=== PATIENT | male | born 1930 | race Caucasian/White ===

== ENCOUNTER 2017-04-15 16:41 | Inpatient (IN) | payer OTHER ==
[~2017-04-15] VITALS: Ht 172.7 cm; Wt 88.8 kg
[2017-04-15] VITALS (12 sets, daily range): BP systolic 94–143; BP diastolic 43–90; PULSE 55–66; TEMP 36.3–36.7; O2SAT 89–100; Ht 172.7 cm; Wt 88.8 kg
[2017-04-15] MEDS ORDERED: SODIUM CHLORIDE 0.9% 1000ML 1,000 ML IV STA (16:58)
[2017-04-15 17:56] LABS: INR 2.7 (0.9-1.1); PARTIAL THROMBOPLASTIN RATIO 1.4; PROTHROMBIN TIME (PATIENT) 30.5 SECONDS (9.0-12.0)
[2017-04-15 18:04] LABS: HEMATOCRIT 21.6 % (42-52); MEAN CELL VOLUME 80.3 fL (80-100); MEAN CORPUSCULAR HEMOGLOBIN 23.8 pg (25-34); MEAN CORPUSCULAR HGB CONC 29.6 g/dl (32-36); MEAN PLATELET VOLUME 8.6 fL (7.4-10.4); PLATELET COUNT 268 K/uL (130-400); RED BLOOD COUNT 2.69 M/uL (4.7-6.1); WHITE BLOOD COUNT 4.94 K/uL (4.8-10.8)
[2017-04-15 18:06] LABS: BUN/CREATININE RATIO 21.5 (10-20); CALCIUM 8.2 mg/dl (8.5-10.1); CREATININE 1.1 mg/dl (0.60-1.40); POTASSIUM 3.5 mmol/L (3.5-5.1)
[2017-04-15 18:09] LABS: BASO % 0.6 %; BASO ABS # 0.03 K/uL (0-0.2); COMPLETE YES; EOS % 2.4 %; HYPOCHROMIA PRESENT; LYMPH % 21.7 %; LYMPH ABS # 1.07 K/uL (1.2-3.4); MICROCYTOSIS PRESENT; MONO % 12.3 %
[2017-04-15 18:17] LABS: URINE APPEARANCE CLEAR (CLEAR); URINE BILIRUBIN NEG (NEG); URINE COLOR YELLOW; URINE NITRITE NEG (NEG); URINE SPECIFIC GRAVITY 1.015 (1.000-1.030); UROBILINOGEN NEG (NEG)
[2017-04-15 18:20] LABS: MANUAL MICROSCOPIC REQUIRED? NO; REVIEW REQ? NO
[2017-04-15] MEDS ORDERED: PRED20TA PO (18:39)
[2017-04-15] MEDS ORDERED: SIMV20TA2 PO (18:39)
[2017-04-15] MEDS ORDERED: PROAIR INH (18:39)
[2017-04-15] MEDS ORDERED: FRS/40 PO (18:39)
[2017-04-15] MEDS ORDERED: ADVIN50/60 INH (18:39)
[2017-04-15] MEDS ORDERED: ATRINS NEB (18:39)
[2017-04-15] MEDS ORDERED: WARF5TAB90 PO ×2 (18:39→18:59)
[2017-04-15] MEDS ORDERED: MULT-513 PO (18:39)
[2017-04-15] MEDS ORDERED: GUAISYP8 PO (18:39)
[2017-04-15] MEDS ORDERED: UMEC1AER INH (18:39)
[2017-04-15] MEDS ORDERED: MULT-190 PO (18:39)
[2017-04-15] MEDS ORDERED: ALBINS/ INH (18:39)
[2017-04-15] MEDS ORDERED: RANI300T2 PO (18:39)
[2017-04-15] MEDS ORDERED: LATA0.5S OP (18:39)
[2017-04-15] MEDS ORDERED: LISI-789 PO (18:39)
[2017-04-15] MEDS ORDERED: ACET-1487 PO (18:39)
[2017-04-15 19:29] LABS: TOTAL IRON BINDING CAPACITY 454 mcg/dl (250-450)
--- NOTE | 2017-04-15 19:53 | DIAGNOSTIC IMAGING REPORT ---
SINGLE VIEW CHEST CLINICAL HISTORY: Dyspnea. FINDINGS: An AP, portable, upright chest radiograph is obtained. No prior studies are available for comparison at the time of dictation. The examination is severely degraded by portable technique, motion artifact, apical and out of positioning, and patient rotation. The heart is enlarged and there is atherosclerotic calcification of the thoracic aorta. There is pulmonary vascular congestion. Nonspecific interstitial thickening is observed. There are small pleural effusions and bibasilar airspace opacities. No pneumothorax is seen. The skeletal structures are osteopenic. The bony thorax is grossly intact. Degenerative change is noted throughout the thoracic spine. IMPRESSION: 1. Cardiomegaly with evidence of congestive failure. 2. Small pleural effusions with bibasilar airspace opacities. This likely represents atelectasis. Clinical correlation will be required. Electronically signed by: Saravanan Montague M.D. 04/15/2017 7:51 PM Dictated Date/Time: 04/15/2017 7:50 PM
[2017-04-15] MEDS ORDERED: FUROSEMIDE INJ 40 MG in SYRINGE 0 ML IV STA (19:55)
[2017-04-15] MEDS ORDERED: TRAMADOL HCL 50 MG TAB PO PRN (20:00)
[2017-04-15] MEDS ORDERED: ONDANSETRON INJ 2 MG/ML 2 ML VIAL IV PRN (20:00)
[2017-04-15] MEDS ORDERED: ACETAMINOPHEN 325 MG TAB PO PRN (20:00)
[2017-04-15] MEDS ORDERED: NITROGLYCERIN 0.4 MG SL PER TAB CHARGE SL PRN (20:00)
[2017-04-15 20:03] LABS: MAGNESIUM 2.1 mg/dl (1.8-2.4); THYROID STIMULATING HORMONE 4.18 uIu/ml (0.300-4.500)
[2017-04-15] MEDS ORDERED: FUROSEMIDE 40 MG/4 ML VIAL ONE (20:16)
[2017-04-15] MEDS ORDERED: POTASSIUM CHLORIDE 10 MEQ TABCR PO STA (20:58)
--- NOTE | 2017-04-15 20:59 | EMERGENCY ROOM VISIT NOTE ---
History Report prepared by Judit: Srikanth Martins Under the Supervision of: Dr. Piter Trivedi M.D. First contact with patient: 16:51 Chief Complaint: ABNORMAL LABS Stated Complaint: BLOOD TRANSFUSION- PHYSICIAN REFERRED History of Present Illness The patient is an 86 year old male who presents to the Emergency Room with abnormal labs this morning. The patient states that he is weak, dizzy, has edema in his legs, and is short of breath. The patient reports that he had his outpatient labs from Dr. Zepeda's office. He states that he was referred to the hospital because his blood count was too low. The patient notes he currently takes Warfarin. His reports that he fell and obtained an infection in his leg where he was treated with three antibiotics. She notes that since then, he was showing weakness. Pt denies LOC, headache, fevers, chills, diaphoresis, visual changes, neck pain, chest pain, nausea, vomiting, abdominal pain, back pain, melena, hematochezia, urinary symptoms, numbness, lymphadenopathy, rash, or other complaints. The patient states that his PCP is Kiah Fitch. Source of History: patient Onset: prior to arrival Position: other (global) Quality: other (abnormal labs) Timing: constant Associated Symptoms: + SOB, + weakness Note: Associated symptoms: dizziness and edema in his legs, Review of Systems See HPI for pertinent positives and negatives. A total of ten systems were reviewed and were otherwise negative. Past Medical & Surgical Medical Problems: (1) Anticoagulant long-term use (2) Atrial fibrillation (3) Hypertension (4) Symptomatic anemia Family History No pertinent family history reported. Social History Smoking Status: Former Smoker Current/Historical Medications Scheduled Furosemide (Lasix), 40 MG PO DAILY Ipratropium [place] (Ipratropium [place]), 1 VIAL NEB QID Latanoprost (Xalatan 0.005% Oph Alice), 1 DROPS OP HS Lisinopril (Zestril), 2.5 MG PO DAILY Multivitamins/Minerals (Mvi With Minerals), 1 TAB PO DAILY Ocuvite Preservision (Ocuvite Preservision), 1 TAB PO BID Prednisone (Prednisone), 20 MG PO RESQUE KIT Ranitidine Hcl (Zantac), 300 MG PO HS Simvastatin (Zocor), 20 MG PO QPM Umeclidinium-Vilanterol (Anoro Ellipta 62.5-25 Mcg/INH), 1 PUFF INH DAILY Warfarin Sodium (Coumadin), 5 MG PO 4XWK Warfarin Sodium (Coumadin), 7.5 MG PO MWF Scheduled PRN Acetaminophen (Tylenol Arthritis Ext Rel), 650 MG PO Q8H PRN for Headache or Pain Albuterol Sulf (Proventil 0.083% 2.5MG/3ML), 2.5 MG INH Q4 PRN for SOB/Wheezing Guaifenesin-Codeine (Guaiatussin Ac), 5 ML PO QID PRN for Cough [Proair], 2 PUFF INH QID PRN for SOB/Wheezing Allergies Coded Allergies: No Known Allergies (Unverified , 04/15/17) Physical Exam Vital Signs Date Time Temp Pulse Resp B/P Pulse Ox O2 Delivery O2 Flow Rate FiO2 04/15/17 18:31 108/53 04/15/17 18:11 95 22 04/15/17 18:01 61 04/15/17 17:52 126/64 04/15/17 17:50 96 Nasal Cannula 2.0 04/15/17 16:48 36.8 85 16 109/47 98 Room Air Physical Exam GENERAL: Awake, alert, well-appearing, in no distress HENT: Normocephalic, atraumatic. Oropharynx unremarkable. EYES: Pale conjunctiva. Sclera non-icteric. NECK: Supple. No nuchal rigidity. FROM. No JVD. RESPIRATORY: Clear to auscultation. CARDIAC: Regular rate, normal rhythm. Extremities warm and well perfused. Pulses equal. ABDOMEN: Soft, non-distended. No tenderness to palpation. No rebound or guarding. No masses. RECTAL: Anmol negative, brown stool MUSCULOSKELETAL: Chest examination reveals no tenderness. The back is symmetrical on inspection without obvious abnormality. There is no CVA tenderness to palpation. No joint edema. LOWER EXTREMITIES: Calves are equal size bilaterally and non-tender. 2+ edema. No discoloration. NEURO: Normal sensorium. No sensory or motor deficits noted. SKIN: No rash or jaundice noted. Medical Decision & Procedures Laboratory Results 04/15/17 17:29 Red Blood Count 2.69, Mean Corpuscular Volume 80.3, Mean Corpuscular Hemoglobin 23.8, Mean Corpuscular Hemoglobin Concent 29.6, Mean Platelet Volume 8.6, Neutrophils (%) (Auto) 63.0, Lymphocytes (%) (Auto) 21.7, Monocytes (%) (Auto) 12.3, Eosinophils (%) (Auto) 2.4, Basophils (%) (Auto) 0.6, Neutrophils # (Auto ) 3.11, Lymphocytes # (Auto) 1.07, Monocytes # (Auto) 0.61, Eosinophils # (Auto ) 0.12, Basophils # (Auto) 0.03 04/15/17 17:29 Test 04/15/17 17:29 04/15/17 17:51 04/15/17 19:14 White Blood Count 4.94 K/uL (4.8-10.8) Red Blood Count 2.69 M/uL (4.7-6.1) Hemoglobin 6.4 g/dL (14.0-18.0) Hematocrit 21.6 % (42-52) Mean Corpuscular Volume 80.3 fL (80-100) Mean Corpuscular Hemoglobin 23.8 pg (25-34) Mean Corpuscular Hemoglobin Concent 29.6 g/dl (32-36) Platelet Count 268 K/uL (130-400) Mean Platelet Volume 8.6 fL (7.4-10.4) Neutrophils (%) (Auto) 63.0 % Lymphocytes (%) (Auto) 21.7 % Monocytes (%) (Auto) 12.3 % Eosinophils (%) (Auto) 2.4 % Basophils (%) (Auto) 0.6 % Neutrophils # (Auto) 3.11 K/uL (1.4-6.5) Lymphocytes # (Auto) 1.07 K/uL (1.2-3.4) Monocytes # (Auto) 0.61 K/uL (0.11-0.59) Eosinophils # (Auto) 0.12 K/uL (0-0.5) Basophils # (Auto) 0.03 K/uL (0-0.2) RDW Standard Deviation 55.4 fL (36.4-46.3) RDW Coefficient of Variation 18.6 % (11.5-14.5) Immature Granulocyte % (Auto) 0.0 % Immature Granulocyte # (Auto) 0.00 K/uL (0.00-0.02) Hypochromasia PRESENT Microcytosis PRESENT Macrocytosis PRESENT Absolute Reticulocyte Count 0.06 10^6/uL (0.02-0.10) Percent Reticulocyte Count 2.0 % (0.5-2.0) Prothrombin Time 30.5 SECONDS (9.0-12.0) Prothromb Time International Ratio 2.7 (0.9-1.1) Activated Partial Thromboplast Time 36.2 SECONDS (21.0-31.0) Partial Thromboplastin Ratio 1.4 Anion Gap 9.0 mmol/L (3-11) Est Creatinine Clear Calc Drug Dose 51.9 ml/min Estimated GFR () 69.6 Estimated GFR (Non- 60.0 BUN/Creatinine Ratio 21.5 (10-20) Calcium Level 8.2 mg/dl (8.5-10.1) Magnesium Level 2.1 mg/dl (1.8-2.4) Iron Level 14 mcg/dl (35-175) Total Iron Binding Capacity 454 mcg/dl (250-450) Total Bilirubin 0.6 mg/dl (0.2-1) Direct Bilirubin 0.2 mg/dl (0-0.2) Aspartate Amino Transf (AST/SGOT) 16 U/L (15-37) Alanine Aminotransferase (ALT/SGPT) 23 U/L (12-78) Alkaline Phosphatase 91 U/L (45-117) Troponin I 0.021 ng/ml (0-0.045) Total Protein 6.2 gm/dl (6.4-8.2) Albumin 3.2 gm/dl (3.4-5.0) Lipase 166 U/L (73-393) Thyroid Stimulating Hormone (TSH) 4.180 uIu/ml (0.300-4.500) Urine Color YELLOW Urine Appearance CLEAR (CLEAR) Urine pH 5.0 (4.5-7.5) Urine Specific Mcgreg[place] 1.015 (1.000-1.030) Urine Protein NEG (NEG) Urine Glucose (UA) NEG (NEG) Urine Ketones NEG (NEG) Urine Occult Blood NEG (NEG) Urine Nitrite NEG (NEG) Urine Bilirubin NEG (NEG) Urine Urobilinogen NEG (NEG) Urine Leukocyte Esterase NEG (NEG) Vitamin B12 Level 598 pg/mL (211-911) Folate > 24.00 ng/mL (>5.38) Laboratory results reviewed by me Medications Administered Medications (Trade) Dose Ordered Sig/Veronica Route Start Time Stop Time Status Last Admin Dose Admin Sodium Chloride (Nss 1000ml) 1,000 ml @ 125 mls/hr Q8H STAT IV 04/15/17 16:58 04/15/17 19:56 DC 04/15/17 18:05 125 MLS/HR ED Course 1650: The patient was evaluated in room C06. A complete history and physical exam was performed. 1657: Ordered Sodium Chloride 1000 ml @ 125 mls/hr IV 0: I reevaluated the patient and discussed his exam findings. I asked him to consent for a blood transfusion and he did. He verbalized understanding of the treatment plan. 2032: I discussed the patient's case with Dr. Luther Dupont. The patient is going to be further evaluated for treatment. Medical Decision Triage Nursing notes reviewed. The patient's presentation and history were concerning for possible severe anemia. Etiologies such as GI bleed, medication induced, bone marrow failure, iron deficiency as well as others were entertained. The patient was evaluated. Clinically he was doing well but was easily dyspneic with minimal movement. He was somewhat pale conjunctival examination. He had heme-negative findings on rectal examination. The patient had blood work obtained. He had a severe anemia with hemoglobin of 6.4. The patient was consented for packed red blood cell transfusion. This was ordered. The patient had a normal reticulocyte count. His INR was therapeutic at 2.7. The patient's iron level was low at 14. His LFTs were unremarkable. Consultation was made with internal medicine. The patient was briefed. The patient was evaluated in the Emergency Room by internal medicine for further management of his severe anemia. The chart was completed utilizing [employer] Speech voice recognition software. Grammatical errors, random word insertions, pronoun errors, and incomplete sentences are an occasional consequence of this system due to software limitations, ambient noise, and hardware issues. Any formal questions or concerns about the content, text, or information contained within the body of this dictation should be directly addressed to the physician for clarification. Consults Time Called: 2027 Consulting Physician: Kiah Rick Returned Call: 2032 I discussed the patient's case with Dr. Luther Dupont. The patient is going to be further evaluated for treatment. Impression Primary Impression: Severe anemia Additional Impressions: Anticoagulant long-term use Atrial fibrillation Scribe Attestation The scribe's documentation has been prepared under my direction and personally reviewed by me in its entirety. I confirm that the note above accurately reflects all work, treatment, procedures, and medical decision making performed by me. Departure Information Dispostion Being Evaluated By Hospitalist Referrals Cornelius Borrero M.D. (PCP) Patient Instructions My [facility] Problem Qualifiers
[2017-04-15] MEDS: SIMVASTATIN 20 MG TAB PO SCH (21:55)
[2017-04-15] MEDS: CEROVITE ADV FORMULA TAB PO SCH (21:55)
[2017-04-15] MEDS: LATANOPROST 0.005% OP SOLN 2.5 ML BTL OP SCH (21:56)
[2017-04-15] MEDS: RANITIDINE HCL 150 MG TAB PO SCH (21:56)
--- NOTE | 2017-04-15 21:59 | HISTORY & PHYSICAL EXAMINATION ---
DATE OF ADMISSION: 04/15/2017 PRIMARY CARE DOCTOR: Dr. Borrero CHIEF COMPLAINT: Abnormal blood work. HISTORY OF PRESENT ILLNESS: History was obtained from the patient's records. Medical history is significant for HTN, COPD, past tobacco abuse, paroxysmal atrial flutter on anticoagulation, chronic cor pulmonale as per records, pulmonary hypertension, nocturnal hypoxemia on home O2 at night. glaucoma. hx MRSA The last 2 months, patient noted shortness of breath, mostly on exertion; usual dry cough symptoms. No weight gain. Compliant with home medications. Has bilateral leg swelling. Seen at the [facility] office last week. Lasix dose was increased. No improvement. Patient was seen at kaiako kura tuarua's office today. Outpatient hemoglobin was noted to be 6. Patient was sent to Emergency Room. Patient denies abdominal pain, black or bloody stools, unusual weight loss. Bloodshot left eye from a few days ago. Patient also has a traumatic swelling on the left leg, slowly healing from a fall on November 2016. MEDICAL HISTORY: As above. A 2D echo from December 2014 showed LVH, EF of 56%, diastolic dysfunction, moderate aortic valve sclerosis, mild TR, moderate biatrial enlargement and pulmonary hypertension, abn PASP, mild enlargement aortic root and ascending aorta. No previous endoscopies in the past. SURGERIES: Cataract surgery. HOME MEDICATIONS: Include; Tylenol, Proventil, Lasix, guaifenesin, Xalatan, Zestril, multivitamins, Ocuvite, ProAir, Zantac, Zocor, Coumadin. ALLERGIES: No known drug allergies. FAMILY HISTORY: lung CA, heart disease. PERSONAL AND SOCIAL HISTORY: Past tobacco use. No chronic intake of alcoholic beverages. 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 All other ROS negative. PHYSICAL EXAMINATION: VITAL SIGNS: Blood pressure was noted to be 106/60, pulse rate 59, RR 18, temp 36.6 and sats 98 on room air. GENERAL: Noted to be slightly anxious, hard of hearing. No respiratory distress. SKIN: Pallor. HEENT: Pale palpebral conjunctivae. Dry mucosa. NECK: No JVD. Supple. CHEST: Decreased breath sounds. HEART: Bradycardic. ABDOMEN: Some distention, nontender. EXTREMITIES: Bilateral lower extremity edema with some induration left lower extremity. No exquisite tenderness. RECTAL: As per ERMD, Hemoccult negative. NEUROLOGIC: No gross focality except for mild hearing impairment. LABORATORIES: Hemoglobin 6.4 (last hemoglobin of of 14 from July 2000) hematocrit 21.6; WBC 4.9 and platelets 268. Sodium was noted to be 140, potassium 3.5, chloride 110, CO2 25, BUN 20, creatinine 1.1 and glucose was noted to be 88. INR is 2.7. Chest x-ray; congestion. EKG; as per my interpretation : rate 60, junctional rhythm. ASSESSMENT: 1. Shortness of breath multifactorial : acute congestive heart failure symptomatic anemia rule out occult blood loss (? L leg trauma) 2. hypertension, stable 3. hx aflutter on Coumadin. rate on the slower side INR therapeutic. 4. hx cor pulmonale/pulm HTN/ hx nocturnal hypoxemia on home O2 at night 5. chronic obstructive pulmonary disease pulmonary status at baseline 6. past tobacco abuse PLAN: PCU diuretic therapy strict IOs, daily weights, CHF education TTE, Cardio consult RE CHF. transfuse pRBC to maintain Hg greater than 7 ff anemia williamson Hold Coumadin for now. CT LLE RE swelling, hx trauma, ro hematoma DVT prophylaxis, SCDs while INR less than 2 while Coumadin on hold Full code. MTDD
[2017-04-15] MEDS ORDERED: POTASSIUM CHLORIDE 10 MEQ TABCR PO ONE (23:00)
--- NOTE | 2017-04-15 23:25 | DIAGNOSTIC IMAGING REPORT ---
CT SCAN OF THE LEFT LOWER EXTREMITY WITHOUT IV CONTRAST CLINICAL HISTORY: Left leg pain and swelling. COMPARISON STUDY: No priors. TECHNIQUE: CT scan of the left lower extremity is performed from the knee to the foot. Images reviewed in the axial, sagittal, and coronal planes. IV contrast was not administered for this examination. Note that interpretation is suboptimal without plain film correlate. CT DOSE: 265.20 mGy.cm FINDINGS: The skeletal structures are osteopenic. No fracture is seen. There is no bony erosion or periostitis. No destructive bony lesion is identified. The knee and ankle joints appear intact noting mild arthritic change. There is generalized atrophy of the imaged left lower extremity musculature. There is atherosclerotic calcification of the regional arteries. There is diffuse subcutaneous soft tissue edema fluid seen throughout the left lower extremity. No organized fluid collection is identified. The Achilles tendon is intact as imaged. IMPRESSION: 1. There is diffuse subcutaneous soft tissue edema identified throughout the left lower extremity. Clinical correlation will be required. 2. No organized fluid collection is seen. 3. The left tibia and fibula appear intact. Dictated: 04/15/2017 10:33 PM Transcribed: 04/15/2017 11:25 PM [email or web address]_Wilson Electronically signed by: Saravanan Montague M.D. 04/15/2017 11:27 PM Dictated Date/Time: 04/15/2017 10:33 PM
[2017-04-16] VITALS (10 sets, daily range): BP systolic 100–120; BP diastolic 57–74; PULSE 52–76; TEMP 36.4–36.9; O2SAT 91–99
[2017-04-16 05:38] LABS: BASO % 0.4 %; BASO ABS # 0.02 K/uL (0-0.2); EOS % 3.7 %; HEMATOCRIT 26.4 % (42-52); IG% 0.4 %; LYMPH % 24.5 %; LYMPH ABS # 1.32 K/uL (1.2-3.4); MEAN CELL VOLUME 80.7 fL (80-100); MEAN CORPUSCULAR HEMOGLOBIN 24.5 pg (25-34); MEAN CORPUSCULAR HGB CONC 30.3 g/dl (32-36); MONO % 14.3 %; NEUT % 56.7 %; PLATELET COUNT 262 K/uL (130-400); RED BLOOD COUNT 3.27 M/uL (4.7-6.1); WHITE BLOOD COUNT 5.39 K/uL (4.8-10.8)
[2017-04-16 05:49] LABS: INR 2.4 (0.9-1.1); PROTHROMBIN TIME (PATIENT) 26.6 SECONDS (9.0-12.0)
[2017-04-16 06:09] LABS: BUN/CREATININE RATIO 24.3 (10-20); POTASSIUM 3.9 mmol/L (3.5-5.1)
[2017-04-16 06:11] LABS: COMPLETE YES
[2017-04-16] MEDS: FERROUS SULFATE 325 MG TAB PO SCH ×2 (08:01→17:20)
[2017-04-16] MEDS: CEROVITE ADV FORMULA TAB PO SCH ×2 (08:02→20:46)
[2017-04-16] MEDS: FUROSEMIDE INJ 40 MG in SYRINGE 0 ML IV SCH ×2 (08:05→17:20)
[2017-04-16] MEDS ORDERED: LISINOPRIL 2.5 MG TAB PO SCH (09:00)
[2017-04-16 12:25] LABS: HEMATOCRIT 27.2 % (42-52)
--- NOTE | 2017-04-16 13:09 | ECHOCARDIOGRAM REPORT ---
*NOTICE TO RECEIVING [employer] This information is strictly Confidential and protected under [place] law. [place] law prohibits you from making any further disclosure of this information unless further disclosure is expressly permitted by the written consent of the person to whom it pertains or is authorized by law. A general authorization for the release of medical or other information is not sufficient for this purpose. Hospital accepts no responsibility if the information is made available to any other person, INCLUDING THE PATIENT. Interpretation Summary * Name: TEJ DESOUZA Study Date: 04/16/2017 09:05 AM BP: 109/68 mmHg * Patient Location: C.2T\S\S234\S\1 HR: 54 * : 1930 (M/d/yyyy) Gender: Male Height: 68 in * Age: 86 yrs Ethnicity: CA Weight: 201 lb * Ordering Physician: Felix Caceres * Referring Physician: James Zepeda D.O. * Performed By: Olga Desouza * * Reason For Study: CHF * BSA: 2.0 m2 * -- Conclusions -- * The left ventricle is normal in size. * There is mild concentric left ventricular hypertrophy. * Left ventricular systolic function is normal. * No regional wall motion abnormalities noted. * Ejection Fraction = 55-60%. * Aortic valve sclerosis moderate, without significant aortic valvular stenosis. * There is moderate mitral regurgitation. * There is moderate tricuspid regurgitation. * The right atrium is moderately dilated. * Right ventricular systolic pressure is elevated at 40-50mmHg. Procedure Details * A complete two-dimensional transthoracic echocardiogram was performed (2D, M-mode, Doppler and color flow Doppler). Left Ventricle * The left ventricle is normal in size. * There is mild concentric left ventricular hypertrophy. * Ejection Fraction = 55-60%. * Left ventricular systolic function is normal. * No regional wall motion abnormalities noted. Right Ventricle * The right ventricle is borderline dilated. Atria * The left atrial size is normal. * The right atrium is moderately dilated. * No ASD detected; PFO is not assessed. Mitral Valve * The mitral valve anatomy is normal. * There is no mitral valve stenosis. * There is moderate mitral regurgitation. Tricuspid Valve * The tricuspid valve anatomy is normal. * There is no tricuspid stenosis. * There is moderate tricuspid regurgitation. * Right ventricular systolic pressure is elevated at 40-50mmHg. Aortic Valve * The aortic valve is trileaflet. * Aortic valve sclerosis moderate, without significant aortic valvular stenosis. * No aortic regurgitation is present. Pulmonic Valve * The pulmonic valve is not well visualized. Great Vessels * The aortic root is normal size. Pericardium/Pleural * There is no pericardial effusion. Great Vessels * Normal inferior vena cava diameter and respiratory variation suggests normal central venous pressure. MMode 2D Measurements and Calculations IVSd 1.4 cm IVSs 1.7 cm LVIDd 5.2 cm LVIDs 3.6 cm LVPWd 1.0 cm LVPWs 1.7 cm IVS/LVPW 1.3 FS 31.1 % EDV(Teich) 129.3 ml ESV(Teich) 53.7 ml EF(Teich) 58.5 % EDV(cubed) 140.3 ml ESV(cubed) 45.8 ml EF(cubed) 67.3 % % IVS thick 25.5 % % LVPW thick 63.0 % LV mass(C)d 252.5 grams LV mass(C)dI 123.3 grams/m\S\2 LV mass(C)s 250.1 grams LV mass(C)sI 122.1 grams/m\S\2 SV(Teich) 75.6 ml SI(Teich) 36.9 ml/m\S\2 SV(cubed) 94.4 ml SI(cubed) 46.1 ml/m\S\2 ACS 1.2 cm LA dimension 4.7 cm asc Aorta Diam 4.3 cm LVOT diam 1.7 cm LVOT area 2.4 cm\S\2 LVAd ap4 38.2 cm\S\2 LVLd ap4 9.4 cm EDV(MOD-sp4) 124.4 ml EDV(sp4-el) 132.0 ml LVAs ap4 23.4 cm\S\2 LVLs ap4 8.1 cm ESV(MOD-sp4) 54.4 ml ESV(sp4-el) 57.3 ml EF(MOD-sp4) 56.3 % EF(sp4-el) 56.6 % LVAd ap2 39.9 cm\S\2 LVLd ap2 9.8 cm EDV(MOD-sp2) 136.6 ml EDV(sp2-el) 138.4 ml LVAs ap2 23.4 cm\S\2 LVLs ap2 7.8 cm ESV(MOD-sp2) 58.7 ml ESV(sp2-el) 59.3 ml EF(MOD-sp2) 57.0 % EF(sp2-el) 57.2 % LVLd %diff 4.0 % EDV(MOD-bp) 130.9 ml LVLs %diff -3.94 % ESV(MOD-bp) 57.7 ml EF(MOD-bp) 55.9 % SV(MOD-sp4) 70.1 ml SI(MOD-sp4) 34.2 ml/m\S\2 SV(MOD-sp2) 78.0 ml SI(MOD-sp2) 38.1 ml/m\S\2 SV(MOD-bp) 73.2 ml SI(MOD-bp) 35.7 ml/m\S\2 SV(sp4-el) 74.7 ml SI(sp4-el) 36.5 ml/m\S\2 SV(sp2-el) 79.1 ml SI(sp2-el) 38.6 ml/m\S\2 Doppler Measurements and Calculations MV E max trice 155.3 cm/sec MV A max trice 51.8 cm/sec MV E/A 3.0 MV dec time 0.20 sec Ao V2 max 206.0 cm/sec Ao max PG 17.0 mmHg Ao max PG (full) 15.1 mmHg SIA(V,A) 0.79 cm\S\2 SAI(V,D) 0.79 cm\S\2 AI max trice 326.0 cm/sec AI max PG 42.5 mmHg AI dec slope 171.0 cm/sec\S\2 AI P1/2t 558.3 msec LV V1 max PG 1.8 mmHg LV V1 max 67.9 cm/sec MR max trice 472.0 cm/sec MR max PG 89.1 mmHg PA V2 max 78.2 cm/sec PA max PG 2.4 mmHg PI end-d trice 90.6 cm/sec TR max trice 313.7 cm/sec
--- NOTE | 2017-04-16 13:37 | CARDIOLOGY CONSULTATION ---
DATE OF CONSULTATION: 04/16/2017 DATE OF CONSULTATION: 04/16/2017. REFERRING: Dr. Felix Caceres. PRIMARY CARE PHYSICIAN: Justus Fitch. INDICATIONS: Chronic Afib flutter, profound anemia. HISTORY OF PRESENT ILLNESS: The patient is an 86-year-old male followed for a history of chronic atrial fibrillation flutter on anticoagulation with intrinsic conduction system disease, history of nocturnal hypoxia chronic obstructive lung disease and pulmonary hypertension by history. The patient was seen yesterday in the outpatient cardiology clinic noting worsening symptoms of fatigue, dyspnea and lower extremity edema. Did note leg contusion earlier this past winter which took a long time to heal. He was sent for stat laboratory studies which returned marked anemia, hemoglobin of 6.4. He was subsequently referred for hospitalization. The patient was seen this morning after admission and transfusion, hemoglobin not greater than 8. Family and patient both feel he looks and feels substantially better, has had spontaneous diuresis. Denies any chest pains, denies tachypalpitations. Notes no syncope or near syncope. Has had difficulties with increasing lower extremity edema which resulted in increased diuretic dosing as an outpatient. Notes no overt signs or symptoms of melena or hematochezia. Notes no dysuria or hematuria. Notes no change in appetite. Notes no headache or visual changes. Did have difficulties with poor healing of contusion to left holland and tibia area treated with antibiotic therapies in November. Notes no other acute complaints. Notes no headache or visual changes. Notes no rash or worsening arthritic complaints. Is modestly active about home but has been dyspneic with minimal exertion over the past several weeks. ALLERGIES: None. MEDICATIONS: At home were Cheratussin p.r.n. cough, ranitidine 300 mg p.o. every day, Atrovent nebulizer, Ellipta nebulizer, prednisone taper rescue pack not used recently, simvastatin 20 mg p.o. daily, lisinopril 2.5 mg p.o. daily, furosemide 20 mg 2 tablets per day, warfarin 7.5 mg Thursday, Thursday, Thursday and 5 mg all other days, oxygen 2 liters nasal cannula. PAST SURGICAL HISTORY: Notable for cataract extractions. FAMILY HISTORY: Noncontributory. SOCIAL HISTORY: The patient is retired from [employer]. He is a nonsmoker x17 years though with [id number] history prior. Uses no significant alcoholic beverages. Is modestly active about his home. PHYSICAL EXAMINATION: VITAL SIGNS: Heart rates 50-60. Blood pressure is 104/57. HEAD, EYES, EARS, NOSE, AND THROAT EXAMINATION: Normocephalic, atraumatic. NECK: Thick. There is no distinct jugular venous distention. LUNGS: Reveal diminished breath sounds with few scattered crackles at the bases. Apices are clear. CARDIOVASCULAR EXAMINATION: Irregularly irregular. Grade 1-2/6 systolic murmur. There is no diastolic murmur. ABDOMEN: Soft. There is no palpable hepatosplenomegaly. EXTREMITIES: Without cyanosis or clubbing. There is 1-2+ lower extremity edema, left greater than right, healing contusion left holland without drainage. NEUROLOGIC: The patient is answering questions appropriately. LABORATORY DATA: White cell count on presentation was 4.9, is 5.3 this morning, hemoglobin on presentation as noted was 6.4, hemoglobin this morning is 8.0. Sodium is 144, potassium is 3.5, chloride 110, bicarb 25, BUN 24, creatinine is 1.1. The TSH is 4.1. Iron level is diminished at 14. There is microcytic indices on initial CBC. Chest x-ray revealed small bilateral pleural effusions. EKG reveals Afib flutter with slow ventricular response rate. Rate 59, occasional ventricular ectopic beats. IMPRESSION: An 86-year-old male admitted with signs and symptoms of fluid retention and volume overload in association with profound anemia. Carries a history of chronic anticoagulation for Afib flutter. No overt source of bleeding. Microcytic indices and iron deficiency noted. The patient has intrinsic conduction system disease by history. The patient on no AV jamie blocking agents with bradycardia at rest. PLAN: Continue transfusion and GI evaluations for bleeding source. Echocardiogram will be reviewed as available. The patient to be maintained on telemetry during hospitalization giving her relatively low heart rates. Would hold furosemide after evening dose this evening as edema appears to be in response anemia rather than acute volume overload.
[2017-04-16 19:06] LABS: HEMATOCRIT 27.2 % (42-52)
[2017-04-16 19:25] LABS: BUN/CREATININE RATIO 15.9 (10-20); CALCIUM 8.4 mg/dl (8.5-10.1); CREATININE 1.5 mg/dl (0.60-1.40); MAGNESIUM 2.3 mg/dl (1.8-2.4); PHOSPHORUS 2.8 mg/dl (2.5-4.9); POTASSIUM 3.9 mmol/L (3.5-5.1)
[2017-04-16] MEDS ORDERED: SODIUM CHLORIDE 0.9% 1000ML 1,000 ML IV SCH (20:00)
[2017-04-16] MEDS: SIMVASTATIN 20 MG TAB PO SCH (20:46)
[2017-04-16] MEDS: LATANOPROST 0.005% OP SOLN 2.5 ML BTL OP SCH (20:46)
[2017-04-16] MEDS: RANITIDINE HCL 150 MG TAB PO SCH (20:46)
--- NOTE | 2017-04-16 22:35 | Progress Note ---
Internal Med Progress Note Date of Service: April 16, 2017. Provider Documentation: SUBJECTIVE: developed episodes of non sustained vtach pt remains asymptomatic denies of any dizzy spell ,no complain of palpitation ,no chest discomfort sitting on end of bed comfortably ' eager to go home visiting OBJECTIVE: Vital Signs-as noted below Exam: General-no sign of distress Eyes-sclera non icteric Lungs-CTA Heart-irregular Abdomen-soft, non tender Extremities-no rash or deformity Neuro-AAO X3 ,no focal deficit Lab data as noted below. ASSESSMENT & PLAN: SYMPTOMATIC ANEMIA : presented with SOB , GORDON Hb ~6 , on chronic anticoagulation with Coumadin borderline microcytic anemia Fe study shows evidence of Fe deficiency ' pt does not recall of having Colonoscopy or EGD done in past s/p 2 units PRBC tx HB improved 6.4 -> 8.4 appropriate correction added Fe supplement GI eval requested ordered for NPO Past midnight NON SUSTAINED VTACH pt denies of any symptom stat lab shows TOM -mild elevation of Cr 1.5 can not order Lopressor for baseline bradycardia ~54 may need amiodarone -will defer to Cardiology cont tele monitor daily EKG HX OF CHRONIC AFIB /FLUTTER not on Beta brent or AV jamie blocking agent due to chronic bradycardia Coumadin on hold due to anemia -possible chronic blood loss ACUTE CHF WITH DIASTOLIC DYSFUNCTION : was given IV lasix initially on hold as pt appears to compensated no evidence of vol overload ECHO : There is mild concentric left ventricular hypertrophy. Left ventricular systolic function is normal. No regional wall motion abnormalities noted. Ejection Fraction = 55-60%. Aortic valve sclerosis moderate, without significant aortic valvular stenosis. cardiology following TOM ON CKD STAGE 3 Cr elevated 1-. 1.5 due to Lasix diuresis hold lasix gentle IV hydration repeat PRP in AM DVT PROPHYLAXIS INR 2 DISPOSITION to home when medically stable Vital Signs: Date Time Temp Pulse Resp B/P Pulse Ox O2 Delivery O2 Flow Rate FiO2 04/16/17 20:00 Room Air 04/16/17 19:19 36.9 56 18 100/57 92 Room Air 04/16/17 16:00 Room Air 04/16/17 15:31 36.5 20 113/67 99 Room Air 04/16/17 12:00 97 Room Air 04/16/17 08:00 97 Room Air 04/16/17 07:52 36.9 76 18 104/57 95 04/16/17 04:09 36.7 54 18 109/68 98 Nasal Cannula 04/16/17 04:00 Room Air 2.0 04/16/17 01:55 52 18 116/74 96 04/16/17 00:05 36.4 55 18 120/73 97 04/16/17 00:01 98 Room Air 2.0 04/15/17 23:35 36.6 55 18 94/56 89 2.0 04/15/17 23:15 36.6 55 18 95/57 95 2.0 04/15/17 23:00 36.3 56 18 102/52 96 2.0 04/15/17 22:48 36.3 56 20 101/43 98 Lab Results: Results Past 24 Hours Test 04/16/17 05:16 04/16/17 12:09 04/16/17 18:58 Range/Units White Blood Count 5.39 4.8-10.8 K/uL Red Blood Count 3.27 4.7-6.1 M/uL Hemoglobin 8.0 8.5 8.4 14.0-18.0 g/dL Hematocrit 26.4 27.2 27.2 42-52 % Mean Corpuscular Volume 80.7 80-100 fL Mean Corpuscular Hemoglobin 24.5 25-34 pg Mean Corpuscular Hemoglobin Concent 30.3 32-36 g/dl Platelet Count 262 130-400 K/uL Mean Platelet Volume 9.0 7.4-10.4 fL Neutrophils (%) (Auto) 56.7 % Lymphocytes (%) (Auto) 24.5 % Monocytes (%) (Auto) 14.3 % Eosinophils (%) (Auto) 3.7 % Basophils (%) (Auto) 0.4 % Neutrophils # (Auto) 3.06 1.4-6.5 K/uL Lymphocytes # (Auto) 1.32 1.2-3.4 K/uL Monocytes # (Auto) 0.77 0.11-0.59 K/uL Eosinophils # (Auto) 0.20 0-0.5 K/uL Basophils # (Auto) 0.02 0-0.2 K/uL RDW Standard Deviation 52.5 36.4-46.3 fL RDW Coefficient of Variation 17.7 11.5-14.5 % Immature Granulocyte % (Auto) 0.4 % Immature Granulocyte # (Auto) 0.02 0.00-0.02 K/uL Red Blood Cell Morphology Unremarkable Prothrombin Time 26.6 9.0-12.0 SECONDS Prothromb Time International Ratio 2.4 0.9-1.1 Sodium Level 145 143 136-145 mmol/L Potassium Level 3.9 3.9 3.5-5.1 mmol/L Chloride Level 111 105 98-107 mmol/L Carbon Dioxide Level 26 31 21-32 mmol/L Anion Gap 8.0 7.0 3-11 mmol/L Blood Urea Nitrogen 24 24 7-18 mg/dl Creatinine 1.00 1.50 0.60-1.40 mg/dl Est Creatinine Clear Calc Drug Dose 57.0 37.7 ml/min Estimated GFR () 78.1 47.8 Estimated GFR (Non- 67.4 41.3 BUN/Creatinine Ratio 24.3 15.9 10-20 Random Glucose 84 119 70-99 mg/dl Calcium Level 8.0 8.4 8.5-10.1 mg/dl Phosphorus Level 2.8 2.5-4.9 mg/dl Magnesium Level 2.3 1.8-2.4 mg/dl
[2017-04-16] MEDS ORDERED: POTASSIUM CHLORIDE 10 MEQ TABCR PO STA (22:36)
[2017-04-17 03:51] VITALS: BP 122/71; PULSE 80; TEMP 36.8; O2SAT 94
[2017-04-17 06:20] LABS: BASO % 0.9 %; BASO ABS # 0.05 K/uL (0-0.2); EOS % 3.1 %; HEMATOCRIT 27.4 % (42-52); LYMPH % 20.1 %; LYMPH ABS # 1.15 K/uL (1.2-3.4); MEAN CELL VOLUME 81.3 fL (80-100); MEAN CORPUSCULAR HEMOGLOBIN 25.5 pg (25-34); MEAN CORPUSCULAR HGB CONC 31.4 g/dl (32-36); MEAN PLATELET VOLUME 9.5 fL (7.4-10.4); MONO % 13.5 %; NEUT % 62.4 %; PLATELET COUNT 282 K/uL (130-400); RED BLOOD COUNT 3.37 M/uL (4.7-6.1); WHITE BLOOD COUNT 5.72 K/uL (4.8-10.8)
[2017-04-17 06:28] LABS: INR 1.9 (0.9-1.1); PROTHROMBIN TIME (PATIENT) 20.6 SECONDS (9.0-12.0)
[2017-04-17 06:49] LABS: BUN/CREATININE RATIO 20.9 (10-20); CALCIUM 8.3 mg/dl (8.5-10.1); CREATININE 1.1 mg/dl (0.60-1.40); MAGNESIUM 2.3 mg/dl (1.8-2.4); POTASSIUM 3.7 mmol/L (3.5-5.1)
[2017-04-17 06:51] LABS: COMPLETE YES; GIANT PLATELETS 1+; MICROCYTOSIS PRESENT
[2017-04-17] MEDS: FERROUS SULFATE 325 MG TAB PO SCH ×2 (07:30→16:15)
--- NOTE | 2017-04-17 07:51 | Gastrointestinal Consultation ---
Gastrointestinal Consultation Date of Consultation: April 17, 2017 Attending Physician: Lonnie Consulting Physician: Charan Reason for Consultation: anemia History of Present Illness Patient is a 86 year old male w/ PMH significant for HTN, COPD, paroxysmal atrial flutter on anticoagulation, chronic cor pulmonale, pulmonary HTN, nocturnal hypoxemia on home O2 at night and glaucoma who presents through the ED for abnormal labs from his collar separator. As an outpatient he has experiencing weakness, dizziness, and GORDON. GI is consulted for anemia, appears to be microcytic with iron deficiency. He tells me he has never had an EGD or colonoscopy. He has not been aware of any gross GI bleeding. He does not have any symptoms of acid reflux. He does take coumadin as an outpatient. Pt is a poor historian - he is unsure if he takes anything for acid reflux as an outpatient. Of note there was a run of v-tach overnight. Patient's case was briefly discuss with cardiology who is also following and they are ok to proceed with any procedures. He is on contact isolation for MRSA infection - he tells me there is no acute infection. Past Medical/Surgical History Medical Problems: (1) Anticoagulant long-term use Status: Chronic (2) Atrial fibrillation Status: Chronic (3) Severe anemia Status: Acute Past Medical History: HTN, COPD, paroxysmal atrial flutter on anticoagulation, chronic cor pulmonale, pulmonary HTN, nocturnal hypoxemia Past Surgical History: Cataract surgery Social History Smoking Status: Former Smoker Allergies Coded Allergies: No Known Allergies (Unverified , 04/15/17) Current Medications Home Meds and Scripts Medications Dose Route/Sig Max Daily Dose Days Date Category Dose Instructions Coumadin (Warfarin Sodium) 5 Mg Tab 7.5 Mg PO MWF 04/15/17 Reported Mvi With Minerals (Multivitamins/Minerals) Tab 1 Tab PO DAILY 04/15/17 Reported Tylenol Arthritis Ext Rel (Acetaminophen) 650 Mg Tab 650 Mg PO Q8H PRN 04/15/17 Reported Ocuvite Preservision (Multivitamins/Minerals) 1 Tab Tab 1 Tab PO BID 04/15/17 Reported Coumadin (Warfarin Sodium) 5 Mg Tab 5 Mg PO 4XWK 04/15/17 Reported take sun, tues, thur, sat [Proair] 2 Puff INH QID PRN 04/15/17 Reported Lasix (Furosemide) 40 Mg Tab 40 Mg PO DAILY 04/15/17 Reported Zocor (Simvastatin) 20 Mg Tab 20 Mg PO QPM 04/15/17 Reported Prednisone 20 Mg Tab 20 Mg PO RESQUE KIT 04/15/17 Reported Xalatan 0.005% Oph Alice (Latanoprost) 0.005 % Alice 1 Drops OP HS 04/15/17 Reported Proventil 0.083% 2.5MG/3ML (Albuterol Sulf) 2.5 Mg/3 Ml Nebu 2.5 Mg INH Q4 PRN 04/15/17 Reported Anoro Ellipta 62.5-25 Mcg/INH (Umeclidinium-Vilanterol) 1 Aer Aer 1 Puff INH DAILY 04/15/17 Reported Ipratropium [place] 0.5 Mg/2.5 Ml Nebu 1 Vial NEB QID 30 04/15/17 Reported Zantac (Ranitidine HCl) 300 Mg Tab 300 Mg PO HS 04/15/17 Reported Guaiatussin Ac (Guaifenesin-Codeine) 1 Syp Syp 5 Ml PO QID PRN 04/15/17 Reported Zestril (Lisinopril) 2.5 Mg Tab 2.5 Mg PO DAILY 04/15/17 Reported Review of Systems Constitutional: No chills, No fever Respiratory: No cough, No shortness of breath Cardiac: No chest pain, No edema Abdomen: No GI bleeding, No constipation, No diarrhea, No nausea, No pain, No vomiting Physical Exam Date Time Temp Pulse Resp B/P Pulse Ox O2 Delivery O2 Flow Rate FiO2 04/17/17 04:00 Nasal Cannula 2.0 04/17/17 03:51 36.8 80 20 122/71 94 Nasal Cannula 2.0 04/17/17 00:00 Room Air 04/16/17 23:04 36.6 57 20 109/64 91 Room Air 04/16/17 20:00 Room Air 04/16/17 19:19 36.9 56 18 100/57 92 Room Air 04/16/17 16:00 Room Air 04/16/17 15:31 36.5 20 113/67 99 Room Air 04/16/17 12:00 97 Room Air 04/16/17 08:00 97 Room Air 04/16/17 07:52 36.9 76 18 104/57 95 General Appearance: no apparent distress (sitting OOB in chair) Eyes: PERRL ENT: + pertinent finding (hard of hearing) Neck: supple Respiratory/Chest: lungs clear, no accessory muscle use, + pertinent finding ( diminished at bases) Cardiovascular: no gallop, no JVD, + systolic murmur, + irregularly irregular Abdomen: normal bowel sounds, non tender, soft, no organomegaly, no pulsatile mass Neurologic/Psych: alert, normal mood/affect, oriented x 3 Skin: normal color Laboratory Results Last 24 Hours Test 04/16/17 12:09 04/16/17 18:58 04/17/17 05:38 Hemoglobin 8.5 g/dL 8.4 g/dL 8.6 g/dL Hematocrit 27.2 % 27.2 % 27.4 % Sodium Level 143 mmol/L 143 mmol/L Potassium Level 3.9 mmol/L 3.7 mmol/L Chloride Level 105 mmol/L 109 mmol/L Carbon Dioxide Level 31 mmol/L 28 mmol/L Anion Gap 7.0 mmol/L 6.0 mmol/L Blood Urea Nitrogen 24 mg/dl 23 mg/dl Creatinine 1.50 mg/dl 1.10 mg/dl Est Creatinine Clear Calc Drug Dose 37.7 ml/min 51.1 ml/min Estimated GFR () 47.8 69.6 Estimated GFR (Non- 41.3 60.0 BUN/Creatinine Ratio 15.9 20.9 Random Glucose 119 mg/dl 86 mg/dl Calcium Level 8.4 mg/dl 8.3 mg/dl Phosphorus Level 2.8 mg/dl Magnesium Level 2.3 mg/dl 2.3 mg/dl White Blood Count 5.72 K/uL Red Blood Count 3.37 M/uL Mean Corpuscular Volume 81.3 fL Mean Corpuscular Hemoglobin 25.5 pg Mean Corpuscular Hemoglobin Concent 31.4 g/dl Platelet Count 282 K/uL Mean Platelet Volume 9.5 fL Neutrophils (%) (Auto) 62.4 % Lymphocytes (%) (Auto) 20.1 % Monocytes (%) (Auto) 13.5 % Eosinophils (%) (Auto) 3.1 % Basophils (%) (Auto) 0.9 % Neutrophils # (Auto) 3.57 K/uL Lymphocytes # (Auto) 1.15 K/uL Monocytes # (Auto) 0.77 K/uL Eosinophils # (Auto) 0.18 K/uL Basophils # (Auto) 0.05 K/uL RDW Standard Deviation 54.7 fL RDW Coefficient of Variation 18.4 % Immature Granulocyte % (Auto) 0.0 % Immature Granulocyte # (Auto) 0.00 K/uL Nucleated RBC Absolute Count (auto) 0.02 K/uL Nucleated Red Blood Cells % 0.4 % Giant Platelets 1+ Microcytosis PRESENT Prothrombin Time 20.6 SECONDS Prothromb Time International Ratio 1.9 Impression Patient is a 86 year old male with suspected LILIANE with abnormal HGB of 6.4 --> 2 units PRBC --> 8.6. He denies any s/s of gross GI bleeding. He has never had endoscopic evaluation before. Differentials including malignancy as a source of chronic GI blood loss were explained to the pt who verbalized understanding. Plan Hold Coumadin NPO EGD with Dr. Farrar today He will need a colonoscopy - if admitted please plan for Thursday with Dr. Feldman NPO after midnight 20 mg dulcolax at 1700 4L colytely at 1700 Trend H&H Transfuse as needed Further recommendations pending EGD GI to follow. Please call with any questions. ATTESTATION: I have performed a history and physical examination of this patient and reviewed the electronic record. Specifically, on physical examination EGD did not show a source of blood loss. I have discussed the case with CHON Perla. The above note reflects my findings, conclusions, and recommendations. Sonny Farrar MD
[2017-04-17 08:44] VITALS: BP 132/86; PULSE 62; TEMP 36.9; O2SAT 96
[2017-04-17] MEDS ORDERED: METOPROLOL SUCC 25MG EXT REL TAB PO STA (09:11)
--- NOTE | 2017-04-17 10:00 | CARDIOLOGY PROGRESS NOTE ---
DATE: 04/17/2017 DATE: 04/17/2017. The patient seen and examined. Chart, medications, telemetry reviewed. SUBJECTIVE: The patient feels substantially improved this morning, sitting out of bed in chair. Notes no dizziness, lightheadedness. Notes no syncope or near syncope. Notes no tachypalpitations. Notes no orthopnea or worsening peripheral edema with edema improved. Anticipates upper endoscopy later today. OBJECTIVE: VITAL SIGNS: Heart rate is 60-80. Blood pressure is 122/71. Telemetry revealed transient runs of wide complex tachycardia which appear to be atrial in origin with aberrancy. NECK: Thin. There is no jugular venous distention. LUNGS: Reveal minimal crackles at the right base, but are predominantly clear with improvement from prior examination. CARDIOVASCULAR EXAMINATION: Irregular, irregular. There is no S3 gallop. ABDOMEN: Soft. EXTREMITIES: Without cyanosis or clubbing. There is trivial pedal edema left slightly greater than right. LABORATORY DATA: Sodium is 143, potassium is 3.7, chloride is 109, bicarbonate is 28, BUN is 23, creatinine is 1.1. INR is 1.9, hemoglobin is 8.6, magnesium level is 2.3. IMPRESSION: An 86-year-old male admitted with profound anemia and associated edema now clinically improved after 2 unit transfusion. Indices are notable for microcytic findings and iron deficiency. Anticipated upper endoscopy. He does have chronic atrial fibrillation flutter with generally slow ventricular response rate reflecting intrinsic conduction disease. Since admission and transfusion heart rates have improved though has had transient runs of fast heart rhythms which appear to be atrial fibrillation with aberrancy, ventricular arrhythmia not completely excluded. PLAN: Begin low dose beta brent with some notable history of conduction system disease intrinsic. The patient to be maintained on telemetry with cautious followup given tendency towards bradyarrhythmias, 12.5 mg Toprol will be administered this morning. No contraindications to proceeding with endoscopy later today. Supplement potassium to greater than 4 once able to resume oral intake.
[2017-04-17] MEDS: ALBUT/IPRATROP 3MG/0.5MG NEB 3 ML VIAL INH PRN (12:39)
[2017-04-17 12:40] VITALS: PULSE 57; O2SAT 92
[2017-04-17] MEDS ORDERED: KETAMINE HCL INJ 50 MG/ML 10 ML VIAL ONE (12:52)
[2017-04-17] MEDS ORDERED: MIDAZOLAM HCL 1 MG/ML 2ML VIAL ONE (12:52)
--- NOTE | 2017-04-17 13:39 | GI REPORT ---
Procedure Date: 04/17/2017 1:10 PM Procedure: Upper GI endoscopy Indications: Iron deficiency anemia Medicines: Monitored Anesthesia Care Complications: No immediate complications. Estimated blood loss: None. Estimated Blood Loss: Estimated blood loss: none. Procedure: Pre-Anesthesia Assessment: - Prior to the procedure, a History and Physical was performed, and patient medications, allergies and sensitivities were reviewed. The patient's tolerance of previous anesthesia was reviewed. - ASA Grade Assessment: IV - A patient with severe systemic disease that is a constant threat to life. After obtaining informed consent, the endoscope was passed under direct vision. Throughout the procedure, the patient's blood pressure, pulse, and oxygen saturations were monitored continuously. The Scope was introduced through the mouth, and advanced to the third part of the duodenum. Small bowel enteroscopy was deemed necessary. The upper GI endoscopy was accomplished with ease. The patient tolerated the procedure well. Findings: The examined esophagus was normal. The Z-line was irregular and was found 40 cm from the incisors. A small hiatus hernia was present. The entire examined stomach was normal. Biopsies were taken with a cold forceps for Helicobacter pylori testing. The examined duodenum was normal. Biopsies for histology were taken with a cold forceps for evaluation of celiac disease. Verification of patient identification for the specimens was done by the physician and nurse using the patient's name, date and medical record number. Impression: - Normal esophagus. - Z-line irregular, 40 cm from the incisors. - Small hiatus hernia. - Normal stomach. Biopsied. - Normal examined duodenum. Biopsied. Recommendation: - Perform a colonoscopy at appointment to be scheduled. Sonny Farrar M.D. Sonny Farrar MD 04/17/2017 1:39:41 PM This report has been signed electronically. Note Initiated On: 04/17/2017 1:10 PM I attest to the content of the Intraoperative Record and orders documented therein, exceptions below
[2017-04-17] MEDS ORDERED: BENZOCAIN/TETRACA/BUTAM SPRAY 200 APPLN/20 GM SPRY ONE (13:49)
[2017-04-17] MEDS ORDERED: PROPOFOL IV EMULSION 10 MG/ML 20 ML VIAL IV ONE (13:49)
[2017-04-17] MEDS ORDERED: LIDOCAINE HCL 2% 2 ML VIAL (20MG/ML) ONE (13:49)
--- NOTE | 2017-04-17 14:40 | Anesthesiology Progress Note ---
Anesthesia Post Op Note Date & Time April 17, 2017 at 14:38 Vital Signs Pain Intensity: 0 Vital Signs Past 12 Hours Date Time Temp Pulse Resp B/P Pulse Ox O2 Delivery O2 Flow Rate FiO2 04/17/17 14:08 90 20 117/69 94 Room Air 04/17/17 14:03 83 20 98/74 94 Room Air 04/17/17 13:57 78 20 120/66 93 Nasal Cannula 3 04/17/17 13:53 69 20 126/61 96 Nasal Cannula 3 04/17/17 13:47 73 22 126/70 99 Nasal Cannula 3 04/17/17 13:42 68 22 107/66 97 Room Air 04/17/17 12:40 57 15 92 Room Air 04/17/17 12:00 Room Air 04/17/17 11:50 36.4 54 20 121/64 93 Room Air 04/17/17 08:44 36.9 62 20 132/86 96 Room Air 04/17/17 08:00 Room Air 04/17/17 04:00 Nasal Cannula 2.0 04/17/17 03:51 36.8 80 20 122/71 94 Nasal Cannula 2.0 Notes Mental Status: alert / awake / arousable, participated in evaluation Pt Amnestic to Procedure: Yes Nausea / Vomiting: adequately controlled Pain: adequately controlled Airway Patency, RR, SpO2: stable & adequate BP & HR: stable & adequate Hydration State: stable & adequate Anesthetic Complications: no major complications apparent Significant ventricular ectopy noted under sedation and on monitor in pacu. 12 lead ecg done in recovery which was relatively unchanged from previous. Patient is asymptomatic and returns to monitored floor.
[2017-04-17 15:35] VITALS: BP 117/62; PULSE 60; TEMP 36.2; O2SAT 90
[2017-04-17] MEDS: CEROVITE ADV FORMULA TAB PO SCH ×2 (16:15→20:52)
[2017-04-17] MEDS: POTASSIUM CHLORIDE 20 MEQ TABCR PO SCH (16:15)
[2017-04-17 19:10] VITALS: BP 112/73; PULSE 65; TEMP 36.8; O2SAT 96
--- NOTE | 2017-04-17 20:34 | Progress Note ---
Internal Med Progress Note Date of Service: April 17, 2017. Provider Documentation: SUBJECTIVE: had EGD earlier , showed normal study no evidence of bleeding noted scheduled for colonoscopy on Thursday pt denies of any dark stool , no complain of SOB fatigue and weakness much improved after PRBC transfusion OBJECTIVE: Vital Signs-as noted below Exam: General-no sign of distress Eyes-sclera non icteric Lungs-CTA Heart-irregular Abdomen-soft, non tender Extremities-no rash or deformity Neuro-AAO X3 ,no focal deficit Lab data as noted below. ASSESSMENT & PLAN: SYMPTOMATIC ANEMIA : presented with SOB , GORDON Hb ~6 , on chronic anticoagulation with Coumadin borderline microcytic anemia Fe study shows evidence of Fe deficiency ' pt does not recall of having Colonoscopy or EGD done in past s/p 2 units PRBC tx HB improved 6.4 -> 8.4 appropriate correction added Fe supplement GI eval requested -appreciate input S/P EGD today -shows normal esophagus ,stomach no evidence of active bleeding pt will stay in patient over the weekend for colonoscopy on Thursday ARRHYTHMIA appreciate cardiology eval had non sustained wide complex tachyarrhythmia possible due to atrial aberrancy /flutter given X1 dose of Lopressor pt remains asymptomatic cont tele monitor daily EKG HX OF CHRONIC AFIB /FLUTTER with ongoing tachybrady syndrome not on Beta brent or AV jamie blocking agent due to chronic bradycardia Coumadin on hold due to anemia -possible chronic blood loss ACUTE CHF WITH DIASTOLIC DYSFUNCTION : was given IV lasix initially on hold as pt appears to compensated no evidence of vol overload ECHO : There is mild concentric left ventricular hypertrophy. Left ventricular systolic function is normal. No regional wall motion abnormalities noted. Ejection Fraction = 55-60%. Aortic valve sclerosis moderate, without significant aortic valvular stenosis. cardiology following TOM ON CKD STAGE 3 resolved after IV hydration Cr elevated 1-. 1.5 due to Lasix diuresis hold lasix repeat PRP in AM DVT PROPHYLAXIS scd and teds avoid anticoagulation due to anemia /GI bleed DISPOSITION to home when medically stable Vital Signs: Date Time Temp Pulse Resp B/P Pulse Ox O2 Delivery O2 Flow Rate FiO2 04/17/17 19:10 36.8 65 18 112/73 96 Room Air 04/17/17 16:00 Room Air 04/17/17 15:35 36.2 60 18 117/62 90 Room Air 04/17/17 14:08 90 20 117/69 94 Room Air 04/17/17 14:03 83 20 98/74 94 Room Air 04/17/17 13:57 78 20 120/66 93 Nasal Cannula 3 04/17/17 13:53 69 20 126/61 96 Nasal Cannula 3 04/17/17 13:47 73 22 126/70 99 Nasal Cannula 3 04/17/17 13:42 68 22 107/66 97 Room Air 04/17/17 12:40 57 15 92 Room Air 04/17/17 12:00 Room Air 04/17/17 11:50 36.4 54 20 121/64 93 Room Air 04/17/17 08:44 36.9 62 20 132/86 96 Room Air 04/17/17 08:00 Room Air 04/17/17 04:00 Nasal Cannula 2.0 04/17/17 03:51 36.8 80 20 122/71 94 Nasal Cannula 2.0 04/17/17 00:00 Room Air 04/16/17 23:04 36.6 57 20 109/64 91 Room Air Lab Results: Results Past 24 Hours Test 04/17/17 05:38 Range/Units White Blood Count 5.72 4.8-10.8 K/uL Red Blood Count 3.37 4.7-6.1 M/uL Hemoglobin 8.6 14.0-18.0 g/dL Hematocrit 27.4 42-52 % Mean Corpuscular Volume 81.3 80-100 fL Mean Corpuscular Hemoglobin 25.5 25-34 pg Mean Corpuscular Hemoglobin Concent 31.4 32-36 g/dl Platelet Count 282 130-400 K/uL Mean Platelet Volume 9.5 7.4-10.4 fL Neutrophils (%) (Auto) 62.4 % Lymphocytes (%) (Auto) 20.1 % Monocytes (%) (Auto) 13.5 % Eosinophils (%) (Auto) 3.1 % Basophils (%) (Auto) 0.9 % Neutrophils # (Auto) 3.57 1.4-6.5 K/uL Lymphocytes # (Auto) 1.15 1.2-3.4 K/uL Monocytes # (Auto) 0.77 0.11-0.59 K/uL Eosinophils # (Auto) 0.18 0-0.5 K/uL Basophils # (Auto) 0.05 0-0.2 K/uL RDW Standard Deviation 54.7 36.4-46.3 fL RDW Coefficient of Variation 18.4 11.5-14.5 % Immature Granulocyte % (Auto) 0.0 % Immature Granulocyte # (Auto) 0.00 0.00-0.02 K/uL Nucleated RBC Absolute Count (auto) 0.02 0-0 K/uL Nucleated Red Blood Cells % 0.4 % Giant Platelets 1+ Microcytosis PRESENT Prothrombin Time 20.6 9.0-12.0 SECONDS Prothromb Time International Ratio 1.9 0.9-1.1 Sodium Level 143 136-145 mmol/L Potassium Level 3.7 3.5-5.1 mmol/L Chloride Level 109 98-107 mmol/L Carbon Dioxide Level 28 21-32 mmol/L Anion Gap 6.0 3-11 mmol/L Blood Urea Nitrogen 23 7-18 mg/dl Creatinine 1.10 0.60-1.40 mg/dl Est Creatinine Clear Calc Drug Dose 51.1 ml/min Estimated GFR () 69.6 Estimated GFR (Non- 60.0 BUN/Creatinine Ratio 20.9 10-20 Random Glucose 86 70-99 mg/dl Calcium Level 8.3 8.5-10.1 mg/dl Magnesium Level 2.3 1.8-2.4 mg/dl
[2017-04-17] MEDS: RANITIDINE HCL 150 MG TAB PO SCH (20:53)
[2017-04-17] MEDS: SIMVASTATIN 20 MG TAB PO SCH (20:53)
[2017-04-17] MEDS: LATANOPROST 0.005% OP SOLN 2.5 ML BTL OP SCH (20:53)
[2017-04-17 23:10] VITALS: BP 126/60; PULSE 67; TEMP 36.5; O2SAT 95
[2017-04-18 03:48] VITALS: BP 121/72; PULSE 59; TEMP 36.3; O2SAT 97
[2017-04-18 06:55] LABS: HEMATOCRIT 28.1 % (42-52)
[2017-04-18 07:00] LABS: INR 1.4 (0.9-1.1); PROTHROMBIN TIME (PATIENT) 15.4 SECONDS (9.0-12.0)
[2017-04-18 07:27] LABS: BUN/CREATININE RATIO 16.4 (10-20); CALCIUM 8.3 mg/dl (8.5-10.1); MAGNESIUM 2.4 mg/dl (1.8-2.4); POTASSIUM 3.8 mmol/L (3.5-5.1)
[2017-04-18 07:33] VITALS: BP 109/68; PULSE 54; TEMP 36.5; O2SAT 100
[2017-04-18] MEDS: CEROVITE ADV FORMULA TAB PO SCH ×2 (09:08→20:24)
[2017-04-18] MEDS: FERROUS SULFATE 325 MG TAB PO SCH ×2 (09:08→15:51)
[2017-04-18] MEDS: POTASSIUM CHLORIDE 20 MEQ TABCR PO SCH (09:08)
[2017-04-18] MEDS: ALBUT/IPRATROP 3MG/0.5MG NEB 3 ML VIAL INH PRN (10:08)
[2017-04-18 10:09] VITALS: PULSE 58; O2SAT 95
--- NOTE | 2017-04-18 11:05 | Cardiology Follow-Up ---
Subjective Subjective Date of Service: April 18, 2017. Pt evaluation today including: conversation w/ patient, conversation w/ family , physical exam, chart review, lab review, review of studies, review of inpatient medication list Additional Details: Pt seen and examined, oob in chair, at bedside. States that he feels great. Denies cp, sob, palpitations, lightheadedness or dizziness. States sob and fatigue prior to admission have greatly improved. No symptoms with activity. Tele reviewed: atrial fibrillation with lower rates and occasional runs of wide complex tachycardia with activity, likely afib with aberrancy. Problem List Medical Problems: (1) Anticoagulant long-term use Status: Chronic (2) Atrial fibrillation Status: Chronic (3) Severe anemia Status: Acute Review of Systems Constitutional: No chills, No fever Respiratory: No cough, No dyspnea at rest, No dyspnea on exertion, No hemoptysis, No problem reported, No see HPI, No shortness of breath, No sputum, No wheezing Cardiac: No PND, No chest pain, No claudication, No edema, No orthopnea, No palpitations, No problem reported, No see HPI Objective Vital Signs Last Vital Signs Documentation Date Time Temp Pulse Resp B/P Pulse Ox O2 Delivery O2 Flow Rate FiO2 04/18/17 10:09 58 16 95 Room Air 04/18/17 07:33 36.5 109/68 2.0 Physical Exam: General Appearance: WD/WN, no apparent distress, + pertinent finding (hard of hearing) Eyes: bilateral eyes EOMI, bilateral eyes PERRL, bilateral eyes normal inspection ENT: normal ENT inspection, pharynx normal Neck: supple, no adenopathy, thyroid normal, no JVD, no carotid bruits, trachea midline Respiratory/Chest: chest non-tender, lungs clear, normal breath sounds, no respiratory distress, no accessory muscle use Cardiovascular: no edema, no JVD, + systolic murmur, + irregularly irregular Abdomen: normal bowel sounds, non tender, soft, no organomegaly, no pulsatile mass Extremities: normal inspection, no pedal edema, no calf tenderness Neurologic/Psychiatric: post doctoral fellow II-XII nml as tested, no motor/sensory deficits, alert, normal mood/affect, oriented x 3 Skin: normal color, warm/dry, no rash Lymphatic: no adenopathy Assessment and Plan 1. anemia profound now stabilized egd negative for colonoscopy coumadin obviously held 2. atrial fibrillation given that wider complexes occur in the setting of activity with compensatory increased rates along with the asymptomatic/hemodynamic milagros nature, believe it to be afib with aberrancy no improvement with beta blockade yesterday along with lower baseline rates and documented primary conduction system disease, will hold off further beta brent at this time coumadin obviously held will have to reevalute candidacy once anemia work up complete cont to monitor on tele
[2017-04-18 11:10] VITALS: BP 116/64; PULSE 56; TEMP 36.2; O2SAT 91
[2017-04-18 15:28] VITALS: BP 117/71; PULSE 60; TEMP 36.5; O2SAT 98
[2017-04-18 18:59] VITALS: BP 122/59; PULSE 57; TEMP 36.7; O2SAT 95
[2017-04-18] MEDS: SIMVASTATIN 20 MG TAB PO SCH (20:24)
[2017-04-18] MEDS: LATANOPROST 0.005% OP SOLN 2.5 ML BTL OP SCH (20:24)
[2017-04-18] MEDS: RANITIDINE HCL 150 MG TAB PO SCH (20:25)
--- NOTE | 2017-04-18 22:18 | Progress Note ---
Internal Med Progress Note Date of Service: April 18, 2017. Provider Documentation: SUBJECTIVE: no complain of chest pain or SOB no nausea tolerating diet well no complain of abdominal pain or discomfort no report of dark stool OBJECTIVE: Vital Signs-as noted below Exam: General-no sign of distress Eyes-sclera non icteric Lungs-CTA Heart-irregular Abdomen-soft, non tender Extremities-no rash or deformity Neuro-AAO X3 ,no focal deficit Lab data as noted below. ASSESSMENT & PLAN: SYMPTOMATIC ANEMIA : presented with SOB , GORDON Hb ~6 , on chronic anticoagulation with Coumadin borderline microcytic anemia Fe study shows evidence of Fe deficiency ' pt does not recall of having Colonoscopy or EGD done in past s/p 2 units PRBC tx HB improved 6.4 -> 8.4 appropriate correction added Fe supplement GI eval requested -appreciate input S/P EGD on 04/17/17 -shows normal esophagus ,stomach no evidence of active bleeding scheduled for colonoscopy on Thursday04/20/17 ARRHYTHMIA appreciate cardiology eval had non sustained wide complex tachyarrhythmia possible due to atrial aberrancy /flutter given X1 dose of Lopressor HR remains in low 50s-60's no further dose of beta brent ordered continue to have episodes of atrial aberrancy cardiology following closely may need out pt EP study once anemia work up is complete HX OF CHRONIC AFIB /FLUTTER with ongoing tachybrady syndrome not on Beta brent or AV jamie blocking agent due to chronic bradycardia Coumadin on hold due to anemia -possible chronic blood loss CHRONIC CHF WITH DIASTOLIC DYSFUNCTION : compensated no evidence of vol overload ECHO : There is mild concentric left ventricular hypertrophy. Left ventricular systolic function is normal. No regional wall motion abnormalities noted. Ejection Fraction = 55-60%. Aortic valve sclerosis moderate, without significant aortic valvular stenosis. cardiology following TOM ON CKD STAGE 3 resolved after IV hydration Cr elevated 1-. 1.5 due to Lasix diuresis hold lasix DVT PROPHYLAXIS scd and teds avoid anticoagulation due to anemia /GI bleed DISPOSITION to home when medically stable Vital Signs: Date Time Temp Pulse Resp B/P Pulse Ox O2 Delivery O2 Flow Rate FiO2 04/18/17 20:00 Room Air 04/18/17 18:59 36.7 57 20 122/59 95 Room Air 04/18/17 16:00 Room Air 04/18/17 15:28 36.5 60 18 117/71 98 Room Air 04/18/17 12:00 Room Air 04/18/17 11:10 36.2 56 16 116/64 91 Room Air 04/18/17 10:09 58 16 95 Room Air 04/18/17 08:00 Room Air 04/18/17 07:33 36.5 54 18 109/68 100 2.0 04/18/17 04:00 Room Air 04/18/17 03:48 36.3 59 22 121/72 97 Nasal Cannula 2.0 04/18/17 00:00 Room Air 04/17/17 23:10 36.5 67 18 126/60 95 Nasal Cannula 2.0 Lab Results: Results Past 24 Hours Test 04/18/17 06:12 Range/Units Hemoglobin 8.6 14.0-18.0 g/dL Hematocrit 28.1 42-52 % Prothrombin Time 15.4 9.0-12.0 SECONDS Prothromb Time International Ratio 1.4 0.9-1.1 Sodium Level 144 136-145 mmol/L Potassium Level 3.8 3.5-5.1 mmol/L Chloride Level 109 98-107 mmol/L Carbon Dioxide Level 26 21-32 mmol/L Anion Gap 9.0 3-11 mmol/L Blood Urea Nitrogen 16 7-18 mg/dl Creatinine 1.00 0.60-1.40 mg/dl Est Creatinine Clear Calc Drug Dose 56.3 ml/min Estimated GFR () 78.1 Estimated GFR (Non- 67.4 BUN/Creatinine Ratio 16.4 10-20 Random Glucose 76 70-99 mg/dl Calcium Level 8.3 8.5-10.1 mg/dl Magnesium Level 2.4 1.8-2.4 mg/dl
[2017-04-19] VITALS (7 sets, daily range): BP systolic 112–144; BP diastolic 63–76; PULSE 55–75; TEMP 36.3–36.6; O2SAT 92–100
[2017-04-19 06:42] LABS: HEMATOCRIT 27.7 % (42-52)
[2017-04-19 07:06] LABS: BUN/CREATININE RATIO 17.1 (10-20); CALCIUM 8.3 mg/dl (8.5-10.1); CREATININE 0.91 mg/dl (0.60-1.40); MAGNESIUM 2.4 mg/dl (1.8-2.4); POTASSIUM 3.8 mmol/L (3.5-5.1)
[2017-04-19] MEDS: POTASSIUM CHLORIDE 20 MEQ TABCR PO SCH (07:36)
[2017-04-19] MEDS: CEROVITE ADV FORMULA TAB PO SCH ×2 (07:36→19:13)
[2017-04-19] MEDS: FERROUS SULFATE 325 MG TAB PO SCH ×2 (07:36→17:27)
--- NOTE | 2017-04-19 11:00 | Cardiology Follow-Up ---
Subjective Subjective Date of Service: April 19, 2017. Pt evaluation today including: conversation w/ patient, physical exam, chart review, lab review, review of studies, review of inpatient medication list Additional Details: Pt seen and examined, states that he feels fine, just tired from not getting sleep. Denies cp, sob, palpitations, lightheadedness or dizziness. Tele reviewed: atrial fibrillation spontaneously converted to sinus rhythm at 1010 today. No significant episodes of aberrancy overnight. Problem List Medical Problems: (1) Anticoagulant long-term use Status: Chronic (2) Atrial fibrillation Status: Chronic (3) Severe anemia Status: Acute Review of Systems Constitutional: No chills, No fever Respiratory: No cough, No dyspnea at rest, No dyspnea on exertion, No hemoptysis, No problem reported, No see HPI, No shortness of breath, No sputum, No wheezing Cardiac: No PND, No chest pain, No claudication, No edema, No orthopnea, No palpitations, No problem reported, No see HPI Objective Vital Signs Last Vital Signs Documentation Date Time Temp Pulse Resp B/P Pulse Ox O2 Delivery O2 Flow Rate FiO2 04/19/17 08:00 Room Air 04/19/17 07:31 36.6 75 18 125/67 92 04/18/17 07:33 2.0 Physical Exam: General Appearance: WD/WN, no apparent distress, + pertinent finding (hard of hearing) Eyes: bilateral eyes EOMI, bilateral eyes PERRL, bilateral eyes normal inspection ENT: normal ENT inspection, pharynx normal Neck: supple, no adenopathy, thyroid normal, no JVD, no carotid bruits, trachea midline Respiratory/Chest: chest non-tender, lungs clear, normal breath sounds, no respiratory distress, no accessory muscle use Cardiovascular: no edema, no JVD, + systolic murmur, + irregularly irregular Abdomen: normal bowel sounds, non tender, soft, no organomegaly, no pulsatile mass Extremities: normal inspection, no pedal edema, no calf tenderness Neurologic/Psychiatric: therapeutic program worker II-XII nml as tested, no motor/sensory deficits, alert, normal mood/affect, oriented x 3 Skin: normal color, warm/dry, no rash Lymphatic: no adenopathy Assessment and Plan 1. anemia profound now stabilized egd negative for colonoscopy tomorrow coumadin obviously held 2. atrial fibrillation given that wider complexes occur in the setting of activity with compensatory increased rates along with the asymptomatic/hemodynamic milagros nature, believe it to be afib with aberrancy no improvement with beta blockade will not restart spontaneously converted to sinus this AM, suspect he will convert back to afib with bowel prep this pm but no treatment will be initiated unless significant RVR coumadin obviously held will have to reevalute candidacy once anemia work up complete cont to monitor on tele
[2017-04-19] MEDS ORDERED: LAVAGE SOLUTION 4000ML PO ONE (17:00)
[2017-04-19] MEDS ORDERED: BISACODYL 5 MG TABEC PO ONE (17:00)
[2017-04-19] MEDS: LATANOPROST 0.005% OP SOLN 2.5 ML BTL OP SCH (19:12)
[2017-04-19] MEDS: SIMVASTATIN 20 MG TAB PO SCH (19:13)
[2017-04-19] MEDS: RANITIDINE HCL 150 MG TAB PO SCH (19:13)
--- NOTE | 2017-04-19 20:35 | Progress Note ---
Internal Med Progress Note Date of Service: April 19, 2017. Provider Documentation: SUBJECTIVE: feels fine offers no complain tolerating bowel prep scheduled for colonoscopy tomorrow AM OBJECTIVE: Vital Signs-as noted below Exam: General-no sign of distress Eyes-sclera non icteric Lungs-CTA Heart-irregular Abdomen-soft, non tender Extremities-no rash or deformity Neuro-AAO X3 ,no focal deficit Lab data as noted below. ASSESSMENT & PLAN: SYMPTOMATIC ANEMIA : presented with SOB , GORDON Hb was ~6 , on chronic anticoagulation with Coumadin borderline microcytic anemia Fe study shows evidence of Fe deficiency ' pt does not recall of having Colonoscopy or EGD done in past s/p 2 units PRBC tx HB improved 6.4 -> 8.4 appropriate correction remains stable added Fe supplement GI eval requested -appreciate input S/P EGD on 04/17/17 -shows normal esophagus ,stomach no evidence of active bleeding scheduled for colonoscopy on tomorrow Thursday04/20/17 pt is ordered NPO past midnight ordered for bowel prep by GI ARRHYTHMIA appreciate cardiology eval converted to sinus with rate controlled spontaneously had non sustained wide complex tachyarrhythmia possible due to atrial aberrancy /flutter given X1 dose of Lopressor HR remains in low 50s-60's no further dose of beta brent ordered continue to have episodes of atrial aberrancy cardiology following closely may need out pt EP study once anemia work up is complete HX OF CHRONIC AFIB /FLUTTER with ongoing tachybrady syndrome not on Beta brent or AV jamie blocking agent due to chronic bradycardia Coumadin on hold due to anemia -possible chronic blood loss CHRONIC CHF WITH DIASTOLIC DYSFUNCTION : compensated no evidence of vol overload ECHO : There is mild concentric left ventricular hypertrophy. Left ventricular systolic function is normal. No regional wall motion abnormalities noted. Ejection Fraction = 55-60%. Aortic valve sclerosis moderate, without significant aortic valvular stenosis. cardiology following TOM ON CKD STAGE 3 resolved after IV hydration Cr elevated 1-. 1.5 due to Lasix diuresis hold lasix DVT PROPHYLAXIS scd and teds avoid anticoagulation due to anemia /GI bleed DISPOSITION to home when medically stable Vital Signs: Date Time Temp Pulse Resp B/P Pulse Ox O2 Delivery O2 Flow Rate FiO2 04/19/17 20:00 Room Air 04/19/17 18:54 36.3 60 18 144/63 97 Room Air 5/21/17 16:00 Room Air 04/19/17 15:18 36.6 65 18 126/71 93 Room Air 04/19/17 12:00 Room Air 04/19/17 11:25 36.6 65 18 117/65 92 04/19/17 08:00 Room Air 04/19/17 07:31 36.6 75 18 125/67 92 Room Air 04/19/17 04:00 Room Air 04/19/17 03:56 36.6 55 18 129/76 95 Nasal Cannula 04/19/17 00:10 36.5 64 18 124/70 94 Nasal Cannula 04/19/17 00:00 Room Air Lab Results: Results Past 24 Hours Test 04/19/17 05:55 Range/Units Hemoglobin 8.3 14.0-18.0 g/dL Hematocrit 27.7 42-52 % Sodium Level 143 136-145 mmol/L Potassium Level 3.8 3.5-5.1 mmol/L Chloride Level 111 98-107 mmol/L Carbon Dioxide Level 25 21-32 mmol/L Anion Gap 7.0 3-11 mmol/L Blood Urea Nitrogen 16 7-18 mg/dl Creatinine 0.91 0.60-1.40 mg/dl Est Creatinine Clear Calc Drug Dose 61.9 ml/min Estimated GFR () 87.5 Estimated GFR (Non- 75.5 BUN/Creatinine Ratio 17.1 10-20 Random Glucose 94 70-99 mg/dl Calcium Level 8.3 8.5-10.1 mg/dl Magnesium Level 2.4 1.8-2.4 mg/dl
[2017-04-20] VITALS (9 sets, daily range): BP systolic 108–136; BP diastolic 57–76; PULSE 62–82; TEMP 36.4–36.7; O2SAT 91–100
[2017-04-20 01:00] LABS: IGA SERUM 405 mg/dL (81-463); TIS TRANS IGA 1 U/mL (<4)
[2017-04-20 07:33] LABS: BUN/CREATININE RATIO 10.5 (10-20); CALCIUM 8.2 mg/dl (8.5-10.1); CREATININE 0.9 mg/dl (0.60-1.40); MAGNESIUM 2.3 mg/dl (1.8-2.4); POTASSIUM 3.9 mmol/L (3.5-5.1)
--- NOTE | 2017-04-20 10:51 | History & Physical Bridge Note ---
H&P Re-Evaluation Bridge Note: I have examined the patient, reviewed the History & Physical and in the interval since the performance of the History & Physical I have noted the following changes of clinical significance: No changes noted
[2017-04-20] MEDS ORDERED: PROPOFOL IV EMULSION 10 MG/ML 20 ML VIAL IV ONE ×2 (10:54→11:58)
[2017-04-20] MEDS ORDERED: LIDOCAINE HCL 2% 2 ML VIAL (20MG/ML) ONE (10:54)
[2017-04-20] MEDS ORDERED: KETAMINE HCL INJ 50 MG/ML 10 ML VIAL ONE (10:56)
[2017-04-20] MEDS ORDERED: MIDAZOLAM HCL 1 MG/ML 2ML VIAL ONE (10:57)
--- NOTE | 2017-04-20 12:14 | GI REPORT ---
Procedure Date: 04/20/2017 10:54 AM Procedure: Colonoscopy Indications: Iron deficiency anemia Medicines: See the Anesthesia note for documentation of the administered medications Complications: No immediate complications. Estimated Blood Loss: Estimated blood loss: none. Procedure: Pre-Anesthesia Assessment: - ASA Grade Assessment: III - A patient with severe systemic disease. After I obtained informed consent, the scope was passed under direct vision. Throughout the procedure, the patient's blood pressure, pulse, and oxygen saturations were monitored continuously. The scope was introduced through the anus and advanced to the terminal ileum. The colonoscopy was performed without difficulty. The patient tolerated the procedure well. The quality of the bowel preparation was good. Findings: The perianal exam findings include non-thrombosed external hemorrhoids. Multiple small and large-mouthed diverticula were found in the sigmoid colon and in the descending colon. A 4 mm polyp was found in the rectum. The polyp was sessile. The polyp was removed with a hot snare. Resection and retrieval were complete. Two sessile polyps were found in the transverse colon. The polyps were 8 to 10 mm in size. These polyps were removed with a saline injection-lift technique using a hot snare. Resection and retrieval were complete. To prevent bleeding after the polypectomy, one hemostatic clip was successfully placed. There was no bleeding at the end of the procedure. A 1 mm polyp was found in the ascending colon. The polyp was sessile. The polyp was removed with a cold snare. Resection and retrieval were complete. Three sessile polyps were found in the cecum. The polyps were 4 to 6 mm in size. These polyps were removed with a saline injection-lift technique using a hot snare. Resection and retrieval were complete. A 4 mm polyp was found in the cecum. The polyp was sessile. The polyp was removed with a cold snare. Resection and retrieval were complete. Four medium-sized angiodysplastic lesions without bleeding were found in the ascending colon and in the cecum. Coagulation for hemostasis using argon plasma was successful. To prevent bleeding post-maneuver, five hemostatic clips were successfully placed. There was no bleeding at the end of the procedure. The exam was otherwise without abnormality. Pictures lost due to technical error. Impression: - Non-thrombosed external hemorrhoids found on perianal exam. - Diverticulosis in the sigmoid colon and in the descending colon. - One 4 mm polyp in the rectum, removed with a hot snare. Resected and retrieved. - Two 8 to 10 mm polyps in the transverse colon, removed using injection-lift and a hot snare. Resected and retrieved. Clip was placed. - One 1 mm polyp in the ascending colon, removed with a cold snare. Resected and retrieved. - Three 4 to 6 mm polyps in the cecum, removed using injection-lift and a hot snare. Resected and retrieved. - One 4 mm polyp in the cecum, removed with a cold snare. Resected and retrieved. - Four non-bleeding colonic angiodysplastic lesions. Treated with argon plasma coagulation (APC). Clips were placed. - The examination was otherwise normal. Recommendation: - Discharge patient to floor. Cont clear liquids today. If possible, hold coumadin x 5 days. Agusto Feldman M.D. Agusto Feldman MD 04/20/2017 12:13:19 PM This report has been signed electronically. Note Initiated On: 04/20/2017 10:54 AM I attest to the content of the Intraoperative Record and orders documented therein, exceptions below
--- NOTE | 2017-04-20 12:54 | Anesthesiology Progress Note ---
Anesthesia Post Op Note Date & Time April 20, 2017 at 12:53 Vital Signs Pain Intensity: 0 Vital Signs Past 12 Hours Date Time Temp Pulse Resp B/P Pulse Ox O2 Delivery O2 Flow Rate FiO2 04/20/17 12:36 61 20 107/82 93 Room Air 04/20/17 12:19 59 12 126/68 95 Room Air 04/20/17 10:34 36.6 58 24 126/68 95 Room Air 04/20/17 08:00 92 Room Air 04/20/17 07:45 36.5 65 20 136/76 92 Room Air 04/20/17 04:00 Room Air 04/20/17 03:52 36.6 62 18 108/70 100 Nasal Cannula 2.0 Notes Mental Status: alert / awake / arousable, participated in evaluation Pt Amnestic to Procedure: Yes Nausea / Vomiting: adequately controlled Pain: adequately controlled Airway Patency, RR, SpO2: stable & adequate BP & HR: stable & adequate Hydration State: stable & adequate Anesthetic Complications: no major complications apparent
[2017-04-20] MEDS: FERROUS SULFATE 325 MG TAB PO SCH ×2 (15:22→16:45)
[2017-04-20] MEDS: CEROVITE ADV FORMULA TAB PO SCH ×2 (15:23→19:53)
[2017-04-20] MEDS: POTASSIUM CHLORIDE 20 MEQ TABCR PO SCH (15:23)
--- NOTE | 2017-04-20 19:43 | Progress Note ---
Internal Med Progress Note Date of Service: April 20, 2017. Provider Documentation: SUBJECTIVE: has colonoscopy earlier today found to have polyps -removed , AVM -which is cauterized no dark stool since the procedure OBJECTIVE: Vital Signs-as noted below Exam: General-no sign of distress Eyes-sclera non icteric Lungs-CTA Heart-irregular Abdomen-soft, non tender Extremities-no rash or deformity Neuro-AAO X3 ,no focal deficit Lab data as noted below. ASSESSMENT & PLAN: SYMPTOMATIC ANEMIA : presented with SOB , GORDON Hb was ~6 , on chronic anticoagulation with Coumadin borderline microcytic anemia Fe study shows evidence of Fe deficiency ' pt does not recall of having Colonoscopy or EGD done in past s/p 2 units PRBC tx HB improved 6.4 -> 8.4 appropriate correction remains stable added Fe supplement GI eval requested -appreciate input S/P EGD on 04/17/17 -shows normal esophagus ,stomach no evidence of active bleeding s/p colonoscopy today : - Non-thrombosed external hemorrhoids found on perianal exam. - Diverticulosis in the sigmoid colon and in the descending colon. - One 4 mm polyp in the rectum, removed with a hot snare. Resected and retrieved. - Two 8 to 10 mm polyps in the transverse colon, removed using injection-lift and a hot snare. Resected and retrieved. Clip was placed. - One 1 mm polyp in the ascending colon, removed with a cold snare. Resected and retrieved. - Three 4 to 6 mm polyps in the cecum, removed using injection-lift and a hot snare. Resected and retrieved. - One 4 mm polyp in the cecum, removed with a cold snare. Resected and retrieved. - Four non-bleeding colonic angiodysplastic lesions. Treated with argon plasma coagulation (APC). Clips were placed. -pt is started on clear diet , will be advanced in AM if not GI bleed noted -need to hold Coumadin for 5 more days -repeat CBC as out pt prior to starting Coumadin to assess for anemia ARRHYTHMIA appreciate cardiology eval converted to sinus with rate controlled spontaneously had non sustained wide complex tachyarrhythmia possible due to atrial aberrancy /flutter given X1 dose of Lopressor HR remains in low 50s-60's no further dose of beta brent ordered continue to have episodes of atrial aberrancy cardiology following closely may need out pt EP study once anemia work up is complete out pt follow up with Cardiology Dr Stevenson on discharge HX OF CHRONIC AFIB /FLUTTER with ongoing tachybrady syndrome not on Beta brent or AV jamie blocking agent due to chronic bradycardia Coumadin on hold due to anemia -possible chronic blood loss will need to hold 5 more day due to recent polypectomy CHRONIC CHF WITH DIASTOLIC DYSFUNCTION : compensated no evidence of vol overload ECHO : There is mild concentric left ventricular hypertrophy. Left ventricular systolic function is normal. No regional wall motion abnormalities noted. Ejection Fraction = 55-60%. Aortic valve sclerosis moderate, without significant aortic valvular stenosis. cardiology following PO Lasix will be resumed on discharge TOM ON CKD STAGE 3 resolved after IV hydration Cr elevated 1-. 1.5 due to Lasix diuresis repeat BMP as out patient DVT PROPHYLAXIS scd and teds avoid anticoagulation due to anemia /GI bleed DISPOSITION possible discharge home tomorrow medicine follow up with Dr Woo at [facility] Vital Signs: Date Time Temp Pulse Resp B/P Pulse Ox O2 Delivery O2 Flow Rate FiO2 04/20/17 20:00 Room Air 04/20/17 19:30 36.6 62 18 113/65 91 Room Air 04/20/17 17:50 36.7 63 20 118/70 93 Room Air 04/20/17 16:00 93 Room Air 04/20/17 13:28 36.4 62 18 117/57 99 Room Air 04/20/17 12:51 61 20 108/66 93 Room Air 04/20/17 12:36 61 20 107/82 93 Room Air 04/20/17 12:19 59 12 126/68 95 Room Air 04/20/17 10:34 36.6 58 24 126/68 95 Room Air 04/20/17 08:00 92 Room Air 04/20/17 07:45 36.5 65 20 136/76 92 Room Air 04/20/17 04:00 Room Air 04/20/17 03:52 36.6 62 18 108/70 100 Nasal Cannula 2.0 04/20/17 00:00 Room Air 04/19/17 23:54 36.6 68 18 112/66 100 Nasal Cannula 2.0 Lab Results: Results Past 24 Hours Test 04/20/17 06:15 Range/Units Hemoglobin 8.3 14.0-18.0 g/dL Hematocrit 28.0 42-52 % Sodium Level 146 136-145 mmol/L Potassium Level 3.9 3.5-5.1 mmol/L Chloride Level 111 98-107 mmol/L Carbon Dioxide Level 28 21-32 mmol/L Anion Gap 7.0 3-11 mmol/L Blood Urea Nitrogen 9 7-18 mg/dl Creatinine 0.90 0.60-1.40 mg/dl Est Creatinine Clear Calc Drug Dose 63.4 ml/min Estimated GFR () 88.7 Estimated GFR (Non- 76.5 BUN/Creatinine Ratio 10.5 10-20 Random Glucose 78 70-99 mg/dl Calcium Level 8.2 8.5-10.1 mg/dl Magnesium Level 2.3 1.8-2.4 mg/dl
[2017-04-20] MEDS: LATANOPROST 0.005% OP SOLN 2.5 ML BTL OP SCH (19:52)
[2017-04-20] MEDS: SIMVASTATIN 20 MG TAB PO SCH (19:53)
[2017-04-20] MEDS: RANITIDINE HCL 150 MG TAB PO SCH (19:53)
[2017-04-20] MEDS ORDERED: FRRS300 PO (20:55)
--- NOTE | 2017-04-20 20:58 | Discharge Instructions ---
Discharge Instructions Date of Service April 20, 2017. Admission Reason for Admission: Symptomatic Anemia Discharge Discharge Diagnosis / Problem: ANEMIA /AFIB Discharge Goals Goal(s): Decrease discomfort, Improve function, Diagnostic testing, Therapeutic intervention Activity Recommendations Activity Limitations: resume your previous activity . Instructions / Follow-Up Instructions / Follow-Up HOSPITAL FOLLOW UP WITH DR HAWLEY IN A WEEK , OFFICE WILL CALL WITH APPOINTMENT LAB WORK : COMPLETE BLOOD WORK , BASIC METABOLIC PANEL ON Thursday04/24/17 CARDIOLOGY FOLLOW UP PER SCHEDULE DO NOT TAKE COUMADIN FOR 5 DAYS DO NOT TAKE ASPIRIN , AVOID ALEVE , ADVIL , MOTRIN , NAPROXEN , IBUPROFEN Current Hospital Diet Patient's current hospital diet: AHA Diet (Heart Healthy) Discharge Diet Recommended Diet: AHA Diet (Heart Healthy) Procedures Procedures Performed: COLONOSCOPY WITH HEMASTATIS AND POLYPECTOMY Pending Studies Studies pending at discharge: yes List of pending studies: LAB WORK : COMPLETE BLOOD WORK , BASIC METABOLIC PANEL ON Thursday04/24/17 Medical Emergencies . Who to Call and When: Medical Emergencies: If at any time you feel your situation is an emergency, please call 911 immediately. . Non-Emergent Contact Non-Emergency issues call your: Primary Care Provider . . "Provider Documentation" section prepared by Delisa Fleming. . VTE Core Measure Inpt VTE Proph given/why not?: Ginger Delatorre, FRANC's
[2017-04-21 04:01] VITALS: BP 112/66; PULSE 65; TEMP 36.7; O2SAT 98
[2017-04-21 07:21] LABS: BUN/CREATININE RATIO 7.5 (10-20); CALCIUM 8.2 mg/dl (8.5-10.1); CREATININE 0.9 mg/dl (0.60-1.40); POTASSIUM 4.2 mmol/L (3.5-5.1)
[2017-04-21 07:25] VITALS: BP 129/62; PULSE 63; TEMP 36.9; O2SAT 90
[2017-04-21 07:35] LABS: HEMATOCRIT 28.4 % (42-52)
[2017-04-21] MEDS: FERROUS SULFATE 325 MG TAB PO SCH (08:07)
[2017-04-21] MEDS: CEROVITE ADV FORMULA TAB PO SCH (08:07)
[2017-04-21] MEDS: POTASSIUM CHLORIDE 20 MEQ TABCR PO SCH (08:08)
--- NOTE | 2017-04-21 08:13 | Progress Note ---
Progress Note Date of Service April 21, 2017. Progress Note Pt was seen and evaluated this AM. He has no complaints and wishes to be discharged. S/P EGD and colonoscopy w/ AVMs and numerous polyps removed. Tolerated procedure well. No abdominal pain. No BM since yesterday - no black/ bloody stools yesterday. No nausea. Tolerating clear liquids well. PE: no acute distress, lungs CTA, heart irregular rhythm, + BS x 4 and nontender. If possible, hold coumadin x 4 more days. GI to sign off. No GI contraindication to discharge.
--- NOTE | 2017-04-21 09:00 | Progress Note ---
Subjective Date of Service: April 21, 2017. Subjective Pt evaluation today including: conversation w/ patient, physical exam, lab review, review of studies, review of inpatient medication list Saw/examined the patient in room 234 He's doing well, standing up and walking around the room, eager to go home Denies shortness of breath/chest pain/palpitations Denies abdominal pain Good PO intake +BM on 04/20 with no blood noted Problem List Medical Problems: (1) Anticoagulant long-term use Status: Chronic (2) Atrial fibrillation Status: Chronic (3) Severe anemia Status: Acute Review of Systems Constitutional: No weakness Respiratory: No cough, No dyspnea at rest, No dyspnea on exertion, No hemoptysis, No shortness of breath, No sputum, No wheezing Cardiac: No chest pain, No edema, No palpitations Abdomen: No GI bleeding, No constipation, No diarrhea, No nausea, No pain, No vomiting Medications Current Inpatient Medications Medications (Trade) Dose Ordered Sig/Veronica Route Start Time Stop Time Status Last Admin Dose Admin Acetaminophen (Tylenol Tab) 650 mg Q4H PRN PO 04/15/17 20:00 05/15/17 19:59 Nitroglycerin (Nitrostat Tab) 0.4 mg UD PRN SL 04/15/17 20:00 05/15/17 19:59 Tramadol HCl (Ultram Tab) 25 mg Q6H PRN PO 04/15/17 20:00 05/15/17 19:59 Ondansetron HCl (Zofran Inj) 4 mg Q6H PRN IV 04/15/17 20:00 05/15/17 19:59 Albuterol/ Ipratropium (Duoneb) 3 ml Q2H PRN INH 04/15/17 20:00 05/15/17 19:59 04/18/17 10:08 3 ML Latanoprost (Xalatan Oph Soln) 1 drops HS OP 04/15/17 21:00 05/15/17 20:59 04/20/17 19:52 1 DROPS Lisinopril (Zestril Tab) 2.5 mg DAILY PO 04/16/17 09:00 05/16/17 08:59 Future Hold 04/16/17 08:02 2.5 MG Multivitamins/ Minerals (Multivitamin W/ Minerals Tab) 1 tab BID PO 04/15/17 21:00 05/15/17 20:59 04/21/17 08:07 1 TAB Ranitidine HCl (zANTac TAB) 300 mg HS PO 04/15/17 21:00 05/15/17 20:59 04/20/17 19:53 300 MG Simvastatin (Zocor Tab) 20 mg QPM PO 04/15/17 21:00 05/15/17 20:59 04/20/17 19:53 20 MG Miscellaneous Information 1 ea 1 ea QS N/A 04/15/17 21:00 05/15/17 20:59 Furosemide/Syringe (Lasix Inj/ Syringe) 4 ml @ 4 mls/min BID17 IV 04/16/17 09:00 05/16/17 08:59 Future Hold 04/16/17 17:20 4 MLS/MIN Ferrous Sulfate (Feosol Tab) 325 mg BIDM PO 04/16/17 07:30 05/16/17 07:59 04/21/17 08:07 325 MG Potassium Chloride (Klor-Con Tab) 20 meq QAM PO 04/17/17 09:00 05/17/17 08:59 04/21/17 08:08 20 MEQ Objective Vital Signs Date Time Temp Pulse Resp B/P Pulse Ox O2 Delivery O2 Flow Rate FiO2 04/21/17 07:25 36.9 63 16 129/62 90 Room Air 04/21/17 04:01 36.7 65 18 112/66 98 Nasal Cannula 2.0 04/21/17 04:00 Room Air 04/20/17 23:59 Room Air 04/20/17 23:49 36.6 64 20 118/63 96 Nasal Cannula 2.0 04/20/17 20:00 Room Air 04/20/17 19:30 36.6 62 18 113/65 91 Room Air 04/20/17 17:50 36.7 63 20 118/70 93 Room Air 04/20/17 16:00 93 Room Air 04/20/17 13:28 36.4 62 18 117/57 99 Room Air 04/20/17 12:51 61 20 108/66 93 Room Air 04/20/17 12:36 61 20 107/82 93 Room Air 04/20/17 12:19 59 12 126/68 95 Room Air 04/20/17 10:34 36.6 58 24 126/68 95 Room Air Physical Exam General Appearance: no apparent distress Respiratory/Chest: chest non-tender, lungs clear, normal breath sounds, no respiratory distress, no accessory muscle use Cardiovascular: no edema, no murmur, + irregularly irregular Abdomen: normal bowel sounds, non tender, + distended Extremities: normal inspection, no pedal edema Neurologic/Psychiatric: no motor/sensory deficits, alert, normal mood/affect Laboratory Results Last 24 Hours Test 04/21/17 06:25 Hemoglobin 8.1 g/dL Hematocrit 28.4 % Sodium Level 147 mmol/L Potassium Level 4.2 mmol/L Chloride Level 113 mmol/L Carbon Dioxide Level 27 mmol/L Anion Gap 7.0 mmol/L Blood Urea Nitrogen 7 mg/dl Creatinine 0.90 mg/dl Est Creatinine Clear Calc Drug Dose 62.6 ml/min Estimated GFR () 88.7 Estimated GFR (Non- 76.5 BUN/Creatinine Ratio 7.5 Random Glucose 79 mg/dl Calcium Level 8.2 mg/dl Assessment and Plan This is an 86 year old male with a PMH of atrial flutter on long-term anticoagulation, COPD, pulmonary HTN/cor pulmonale, nocturnal hypoxemia using 2L O2 nocturnally, HTN, HLD, GERD sent to the ER due to Hgb being ~ 6 as an outpatient Symptomatic Anemia patient presented with Hgb of ~ 6 (6.4 on admission) presented with shortness of breath and dyspnea, initially thought to be related to his cor pulmonale and COPD he was transfused two units of PRBCs, with good response, Hgb > 8 GI was consulted; EGD and colonoscopy performed colonoscopy showed AVMs and polyps - which were clipped/removed patient's diet advanced and doing well Coumadin placed on hold during anemia episode; to hold for four more days ( resume 04/25 if no bleeding) Iron supplementation started if okay with cardiology, will d/c home today Atrial Flutter/Fibrillation with Aberrancy ongoing issue of tachy-mika b-blockade was initiated, but due to bradycardia, this was stopped HRs are controlled currently in the 80s, seems to be in NSR with multiple PVCs no b-brent or AV node brent at this time no Coumadin due to anemia; will hold until 04/25 outpatient cardiology f/u COPD significant COPD uses O2 nocturnally due to hypoxemia no exacerbation currently; can continue home inhalers on discharge TOM superimposed on CKD stage 3 - resolved creatinine elevated to 1.5 earlier in admission secondary to Lasix use + anemia s/p two units pRBCs and hydration, and this has resolved HTN blood pressure controlled continue SHAD-I on discharge DVT ppx holding Coumadin SCDs FULL CODE d/c home today (04/21) if okay with cardiology Discharge planning: home
--- NOTE | 2017-04-21 10:07 | Cardiology Follow-Up ---
Subjective Subjective Date of Service: April 21, 2017. Pt evaluation today including: conversation w/ patient, physical exam, chart review, lab review, review of studies, review of inpatient medication list Additional Details: Pt seen and examined, states that he feels great. Denies cp, sob, palpitations, lightheadedness or dizziness. Tele reviewed: atrial fibrillation without significant aberrancy Problem List Medical Problems: (1) Anticoagulant long-term use Status: Chronic (2) Atrial fibrillation Status: Chronic (3) Severe anemia Status: Acute Review of Systems Constitutional: No weakness Respiratory: No cough, No dyspnea at rest, No dyspnea on exertion, No hemoptysis, No shortness of breath, No sputum, No wheezing Cardiac: No chest pain, No edema, No palpitations Abdomen: No GI bleeding, No constipation, No diarrhea, No nausea, No pain, No vomiting Objective Vital Signs Last Vital Signs Documentation Date Time Temp Pulse Resp B/P Pulse Ox O2 Delivery O2 Flow Rate FiO2 04/21/17 07:25 36.9 63 16 129/62 90 Room Air 04/21/17 04:01 2.0 Physical Exam: General Appearance: no apparent distress Eyes: bilateral eyes EOMI, bilateral eyes PERRL, bilateral eyes normal inspection ENT: normal ENT inspection, pharynx normal Neck: supple, no adenopathy, thyroid normal, no JVD, no carotid bruits, trachea midline Respiratory/Chest: chest non-tender, lungs clear, normal breath sounds, no respiratory distress, no accessory muscle use Cardiovascular: no edema, no murmur, + irregularly irregular Abdomen: normal bowel sounds, non tender, + distended Extremities: normal inspection, no pedal edema Neurologic/Psychiatric: no motor/sensory deficits, alert, normal mood/affect Skin: normal color, warm/dry, no rash Lymphatic: no adenopathy Assessment and Plan 1. anemia profound now stabilized egd negative s/p polypectomies will restart coumadin 2. atrial fibrillation given that wider complexes occur in the setting of activity with compensatory increased rates along with the asymptomatic/hemodynamic milagros nature, believe it to be afib with aberrancy no improvement with beta blockade will not restart will restart coumadin in 4 days as per recommendations by GI will need coumadin clinic f/u as outpatient and likely cbc in 1 week ok to d/c to home from cardiac standpoint. Discharge planning: home
--- NOTE | 2017-04-21 10:30 | Discharge Summary ---
Discharge Summary Date of Service April 21, 2017. Discharge Summary Admission Date: April 15, 2017 at 19:27 Discharge Date: April 21, 2017 Discharge Disposition: Home Principal Diagnosis: Symptomatic Anemia, likely Acute Blood Loss; LGIB Atrial Fibrillation Medication Reconciliation New Medications: Ferrous Sulfate (Ferrous Sulfate) 325 Mg Tab 325 MG PO BIDM for 30 Days, #60 TAB Continued Medications: Acetaminophen (Tylenol Arthritis Ext Rel) 650 Mg Tab 650 MG PO Q8H PRN for Headache or Pain, TAB Albuterol Sulf (Proventil 0.083% 2.5MG/3ML) 2.5 Mg/3 Ml Nebu 2.5 MG INH Q4 PRN for SOB/Wheezing, EA Furosemide (Lasix) 40 Mg Tab 40 MG PO DAILY, TAB Guaifenesin-Codeine (Guaiatussin Ac) 1 Syp Syp 5 ML PO QID PRN for Cough Ipratropium Bradley (Ipratropium Bradley) 0.5 Mg/2.5 Ml Nebu 1 VIAL NEB QID for 30 Days, #300 ML 5 Refills Latanoprost (Xalatan 0.005% Oph Alice) 0.005 % Alice 1 DROPS OP HS, #2.5 ML 3 Refills Lisinopril (Zestril) 2.5 Mg Tab 2.5 MG PO DAILY Multivitamins/Minerals (Mvi With Minerals) Tab 1 TAB PO DAILY, TAB Ocuvite Preservision (Ocuvite Preservision) 1 Tab Tab 1 TAB PO BID, TAB Prednisone (Prednisone) 20 Mg Tab 20 MG PO RESQUE KIT, TAB Ranitidine Hcl (Zantac) 300 Mg Tab 300 MG PO HS, TAB Simvastatin (Zocor) 20 Mg Tab 20 MG PO QPM, TAB Umeclidinium-Vilanterol (Anoro Ellipta 62.5-25 Mcg/INH) 1 Aer Aer 1 PUFF INH DAILY [Proair] () 2 PUFF INH QID PRN for SOB/Wheezing Discontinued Medications: Warfarin Sodium (Coumadin) 5 Mg Tab 5 MG PO 4XWK, TAB take sun, tues, thur, sat Warfarin Sodium (Coumadin) 5 Mg Tab 7.5 MG PO MWF, TAB Admission Information Physical Exam (per Admitting): DATE OF ADMISSION: 04/15/2017 PRIMARY CARE DOCTOR: Dr. Borrero CHIEF COMPLAINT: Abnormal blood work. HISTORY OF PRESENT ILLNESS: History was obtained from the patient's records. Medical history is significant for HTN, COPD, past tobacco abuse, paroxysmal atrial flutter on anticoagulation, chronic cor pulmonale as per records, pulmonary hypertension, nocturnal hypoxemia on home O2 at night. glaucoma. hx MRSA The last 2 months, patient noted shortness of breath, mostly on exertion; usual dry cough symptoms. No weight gain. Compliant with home medications. Has bilateral leg swelling. Seen at the [facility] [place] Thoracic Medicine office last week. Lasix dose was increased. No improvement. Patient was seen at service operator's office today. Outpatient hemoglobin was noted to be 6. Patient was sent to Emergency Room. Patient denies abdominal pain, black or bloody stools, unusual weight loss. Bloodshot left eye from a few days ago. Patient also has a traumatic swelling on the left leg, slowly healing from a fall on November 2016. MEDICAL HISTORY: As above. A 2D echo from December 2014 showed LVH, EF of 56%, diastolic dysfunction, moderate aortic valve sclerosis, mild TR, moderate biatrial enlargement and pulmonary hypertension, abn PASP, mild enlargement aortic root and ascending aorta. No previous endoscopies in the past. SURGERIES: Cataract surgery. HOME MEDICATIONS: Include; Tylenol, Proventil, Lasix, guaifenesin, Xalatan, Zestril, multivitamins, Ocuvite, ProAir, Zantac, Zocor, Coumadin. ALLERGIES: No known drug allergies. FAMILY HISTORY: lung CA, heart disease. PERSONAL AND SOCIAL HISTORY: Past tobacco use. No chronic intake of alcoholic beverages. 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 All other ROS negative. PHYSICAL EXAMINATION: VITAL SIGNS: Blood pressure was noted to be 106/60, pulse rate 59, RR 18, temp 36.6 and sats 98 on room air. GENERAL: Noted to be slightly anxious, hard of hearing. No respiratory distress. SKIN: Pallor. HEENT: Pale palpebral conjunctivae. Dry mucosa. NECK: No JVD. Supple. CHEST: Decreased breath sounds. HEART: Bradycardic. ABDOMEN: Some distention, nontender. EXTREMITIES: Bilateral lower extremity edema with some induration left lower extremity. No exquisite tenderness. RECTAL: As per ERMD, Hemoccult negative. NEUROLOGIC: No gross focality except for mild hearing impairment. LABORATORIES: Hemoglobin 6.4 (last hemoglobin of of 14 from July 2000) hematocrit 21.6; WBC 4.9 and platelets 268. Sodium was noted to be 140, potassium 3.5, chloride 110, CO2 25, BUN 20, creatinine 1.1 and glucose was noted to be 88. INR is 2.7. Chest x-ray; congestion. EKG; as per my interpretation : rate 60, junctional rhythm. ASSESSMENT: 1. Shortness of breath multifactorial : acute congestive heart failure symptomatic anemia rule out occult blood loss (? L leg trauma) 2. hypertension, stable 3. hx aflutter on Coumadin. rate on the slower side INR therapeutic. 4. hx cor pulmonale/pulm HTN/ hx nocturnal hypoxemia on home O2 at night 5. chronic obstructive pulmonary disease pulmonary status at baseline 6. past tobacco abuse PLAN: PCU diuretic therapy strict IOs, daily weights, CHF education TTE, Cardio consult RE CHF. transfuse pRBC to maintain Hg greater than 7 ff anemia williamson Hold Coumadin for now. CT LLE RE swelling, hx trauma, ro hematoma DVT prophylaxis, SCDs while INR less than 2 while Coumadin on hold Full code. Hospital Course This is an 86 year old male with a PMH of atrial flutter on long-term anticoagulation, COPD, pulmonary HTN/cor pulmonale, nocturnal hypoxemia using 2L O2 nocturnally, HTN, HLD, GERD sent to the ER due to Hgb being ~ 6 as an outpatient Symptomatic Anemia patient presented with Hgb of ~ 6 (6.4 on admission) presented with shortness of breath and dyspnea, initially thought to be related to his cor pulmonale and COPD he was transfused two units of PRBCs, with good response, Hgb > 8 GI was consulted; EGD and colonoscopy performed colonoscopy showed AVMs and polyps - which were clipped/removed patient's diet advanced and doing well Coumadin placed on hold during anemia episode; to hold for four more days ( resume 04/25 if no bleeding) Iron supplementation started if okay with cardiology, will d/c home today Atrial Flutter/Fibrillation with Aberrancy ongoing issue of tachy-mika b-blockade was initiated, but due to bradycardia, this was stopped HRs are controlled currently in the 80s, seems to be in NSR with multiple PVCs no b-brent or AV node brent at this time no Coumadin due to anemia; will hold until 04/25 outpatient cardiology f/u COPD significant COPD uses O2 nocturnally due to hypoxemia no exacerbation currently; can continue home inhalers on discharge TOM superimposed on CKD stage 3 - resolved creatinine elevated to 1.5 earlier in admission secondary to Lasix use + anemia s/p two units pRBCs and hydration, and this has resolved HTN blood pressure controlled continue SHAD-I on discharge DVT ppx holding Coumadin SCDs FULL CODE d/c home today (04/21) if okay with cardiology Discharge planning: home Total time spent on discharge = 25 minutes This includes examination of the patient, discharge planning, medication reconciliation, and communication with other providers. Discharge Instructions HOSPITAL FOLLOW UP WITH DR HAWLEY IN A WEEK , OFFICE WILL CALL WITH APPOINTMENT LAB WORK : COMPLETE BLOOD WORK , BASIC METABOLIC PANEL ON Thursday04/24/17 CARDIOLOGY FOLLOW UP PER SCHEDULE DO NOT TAKE COUMADIN FOR 5 DAYS DO NOT TAKE ASPIRIN , AVOID ALEVE , ADVIL , MOTRIN , NAPROXEN , IBUPROFEN
[2017-04-21 11:25] VITALS: BP 129/62; PULSE 63; TEMP 36.9; O2SAT 90
[2017-07-14] MEDS ORDERED: FERR1TAB13 PO (11:08)
[2017-07-14] MEDS ORDERED: FURO-85 PO (11:08)
[2017-07-14] MEDS ORDERED: VNTHFA/IN INH (11:08)
[2017-07-14] MEDS ORDERED: advair INH (11:08)
[2017-07-14] MEDS ORDERED: WARF5TAB7 PO ×2 (11:11)
[2017-07-14] MEDS ORDERED: OXGN (11:12)
== END 2017-04-21 13:00 | disposition home or self-care (01) | DRG 291 ==
LOC: ENRESERVTM → ENRESERVDT → C.EDB 16:45 → C.2T 19:27 → EDBEDREQ 19:41
PROVIDERS: ADMIT Hospitalist; ATTEND Family Medicine
PROC: 0DB98ZX Excision of Duodenum, Via Natural or Artificial Opening Endoscopic, Diagnostic (ICD-10-PCS; principal; 2017-04-17 11:42)
PROC: 0DB68ZX Excision of Stomach, Via Natural or Artificial Opening Endoscopic, Diagnostic (ICD-10-PCS; principal; 2017-04-17 11:42)
PROC: 0D5K8ZZ Destruction of Ascending Colon, Via Natural or Artificial Opening Endoscopic (ICD-10-PCS; 2017-04-20 10:29)
PROC: 0D5H8ZZ Destruction of Cecum, Via Natural or Artificial Opening Endoscopic (ICD-10-PCS; 2017-04-20 10:29)
PROC: 0DBH8ZX Excision of Cecum, Via Natural or Artificial Opening Endoscopic, Diagnostic (ICD-10-PCS; 2017-04-20 10:29)
PROC: 0DBK8ZX Excision of Ascending Colon, Via Natural or Artificial Opening Endoscopic, Diagnostic (ICD-10-PCS; 2017-04-20 10:29)
PROC: 0DBP8ZX Excision of Rectum, Via Natural or Artificial Opening Endoscopic, Diagnostic (ICD-10-PCS; 2017-04-20 10:29)
PROC: 0DBL8ZX Excision of Transverse Colon, Via Natural or Artificial Opening Endoscopic, Diagnostic (ICD-10-PCS; 2017-04-20 10:29)
DX: I13.0 Hypertensive heart and chronic kidney disease with heart failure and stage 1 through stage 4 chronic kidney disease, or unspecified chronic kidney disease (principal); I50.31 Acute diastolic (congestive) heart failure; D62 Acute posthemorrhagic anemia; K92.2 Gastrointestinal hemorrhage, unspecified; I48.92 Unspecified atrial flutter; N17.9 Acute kidney failure, unspecified; I47.2 Ventricular tachycardia; Z79.01 Long term (current) use of anticoagulants; I48.0 Paroxysmal atrial fibrillation; J44.9 Chronic obstructive pulmonary disease, unspecified; I27.2 Other secondary pulmonary hypertension; N18.3 Chronic kidney disease, stage 3 (moderate); K64.4 Residual hemorrhoidal skin tags; K62.1 Rectal polyp; K63.5 Polyp of colon; K55.20 Angiodysplasia of colon without hemorrhage; Z86.14 Personal history of Methicillin resistant Staphylococcus aureus infection; Z87.891 Personal history of nicotine dependence; K57.30 Diverticulosis of large intestine without perforation or abscess without bleeding

== ENCOUNTER 2017-07-20 05:58 | Day surgery (SDC) | payer OTHER ==
[2017-07-14 11:13] VITALS: BMI 31.0
--- NOTE | 2017-07-14 11:50 | PAT Medication Instructions ---
Service Date Jul 14, 2017. Current Home Medication List Acetaminophen (Tylenol Arthritis Ext Rel), 650 MG PO Q8H PRN for Headache or Pain Albuterol Hfa (Ventolin Hfa), 2-4 PUFFS INH Q6H PRN for PRN Albuterol Sulf (Proventil 0.083% 2.5MG/3ML), 2.5 MG INH Q4 PRN for SOB/Wheezing Ferrous Sulfate (Kp Ferrous Sulfate), 1 TAB PO BID Furosemide (Lasix), 20 MG PO QAM Home O2 Therapy (Oxygen), 2 LITERS NA HS Latanoprost (Xalatan 0.005% Oph Alice), 1 DROPS OP HS Lisinopril (Zestril), 2.5 MG PO QAM Multivitamins/Minerals (Mvi With Minerals), 1 TAB PO HS Ocuvite Preservision (Ocuvite Preservision), 1 TAB PO BID Ranitidine Hcl (Zantac), 300 MG PO HS Simvastatin (Zocor), 20 MG PO QPM Warfarin Sod (Jantoven), 5 MG PO 4XWEEK Warfarin Sod (Jantoven), 5 MG PO 3XWEEK [advair], 1 DOSE INH BID Medication Instructions For Your Scheduled Surgery - Check with surgeon/coumadin clinic for instructions: Warfarin Sod (Jantoven), 5 MG PO 4XWEEK Warfarin Sod (Jantoven), 5 MG PO 3XWEEK - Hold the following medications the morning of surgery: Ferrous Sulfate (Kp Ferrous Sulfate), 1 TAB PO BID Furosemide (Lasix), 20 MG PO QAM Lisinopril (Zestril), 2.5 MG PO QAM - Take the following medications the morning of surgery with a sip of water: Acetaminophen (Tylenol Arthritis Ext Rel), 650 MG PO Q8H PRN for Headache or Pain (if needed) Albuterol Hfa (Ventolin Hfa), 2-4 PUFFS INH Q6H PRN for PRN (if needed) Albuterol Sulf (Proventil 0.083% 2.5MG/3ML), 2.5 MG INH Q4 PRN for SOB/Wheezing (if needed) Ocuvite Preservision (Ocuvite Preservision), 1 TAB PO BID [advair], 1 DOSE INH BID - Take the following medications as scheduled the night before surgery: [advair], 1 DOSE INH BID Ranitidine Hcl (Zantac), 300 MG PO HS Simvastatin (Zocor), 20 MG PO QPM Ocuvite Preservision (Ocuvite Preservision), 1 TAB PO BID Multivitamins/Minerals (Mvi With Minerals), 1 TAB PO HS Home O2 Therapy (Oxygen), 2 LITERS NA HS Latanoprost (Xalatan 0.005% Oph Alice), 1 DROPS OP HS Ferrous Sulfate (Kp Ferrous Sulfate), 1 TAB PO BID Acetaminophen (Tylenol Arthritis Ext Rel), 650 MG PO Q8H PRN for Headache or Pain (if needed) Albuterol Hfa (Ventolin Hfa), 2-4 PUFFS INH Q6H PRN for PRN (if needed) Albuterol Sulf (Proventil 0.083% 2.5MG/3ML), 2.5 MG INH Q4 PRN for SOB/Wheezing (if needed) If you have any questions please call us at [phone] or [phone] or [phone]
[~2017-07-20] VITALS: Ht 167.6 cm; Wt 87.1 kg
[~2017-07-20 05:58] MED LIST: ACET-1487 PO; ALBINS/ INH; FERR1TAB13 PO; FURO-85 PO; LATA0.5S OP; LISI-789 PO; MULT-190 PO; MULT-513 PO; OXGN; RANI300T2 PO; SIMV20TA2 PO; VNTHFA/IN INH; WARF5TAB7 PO; advair INH
[2017-07-20] MEDS ORDERED: CEFAZOLIN 2000 MG/60 ML D5W IV SCH (06:00)
[2017-07-20] MEDS ORDERED: LACTATED RINGER'S 1000ML 1,000 ML IV SCH (06:00)
[2017-07-20 06:45] VITALS: PULSE 76; TEMP 36.6; Ht 167.6 cm; Wt 87.1 kg
[2017-07-20 07:24] LABS: PARTIAL THROMBOPLASTIN RATIO 1.1; PROTHROMBIN TIME (PATIENT) 10.7 SECONDS (9.0-12.0)
[2017-07-20] MEDS ORDERED: MIDAZOLAM HCL 1 MG/ML 2ML VIAL ONE (07:28)
[2017-07-20] MEDS ORDERED: ONDANSETRON INJ 2 MG/ML 2 ML VIAL ONE ×2 (07:28→11:27)
[2017-07-20] MEDS ORDERED: FENTANYL CITRATE INJ 50 MCG/1 ML 2 ML VIAL ONE (07:28)
[2017-07-20] MEDS ORDERED: LIDOCAINE HCL 2% 2 ML VIAL (20MG/ML) ONE (07:28)
[2017-07-20] MEDS ORDERED: PROPOFOL IV EMULSION 10 MG/ML 20 ML VIAL IV ONE ×2 (07:28→09:45)
[2017-07-20] MEDS ORDERED: ATROPINE SULFATE 0.1 MG/ML 5ML SYR IV PRN (07:30)
[2017-07-20] MEDS ORDERED: FENTANYL CITRATE INJ 50 MCG/1 ML 2 ML VIAL IV PRN (07:30)
[2017-07-20] MEDS ORDERED: ONDANSETRON INJ 2 MG/ML 2 ML VIAL IV PRN ×2 (07:30→10:30)
[2017-07-20] MEDS ORDERED: EpHEDrine SULFATE INJ 50 MG/ML AMP IV PRN (07:30)
[2017-07-20] MEDS ORDERED: BUPIVACAINE 0.5 % 5 MG/1 ML MPF 30ML VIAL ONE (09:13)
[2017-07-20] MEDS ORDERED: LIDOCAINE HCL 1% 20 ML VIAL ONE (09:13)
[2017-07-20] MEDS ORDERED: EpHEDrine SULFATE INJ 50 MG/ML AMP ONE (09:45)
[2017-07-20] MEDS ORDERED: SODIUM CHLORIDE 0.9% 1000ML 1,000 ML IV SCH (10:17)
--- NOTE | 2017-07-20 10:17 | [facility] Post Operative Brief Note ---
Immediate Operative Summary Operative Date Jul 20, 2017. Pre-Operative Diagnosis Umbilical Hernia Post-Operative Diagnosis Umbilical Hernia Procedure(s) Performed Open Umbilical Hernia Repair Surgeon Dr. Vivek Lord [employer] Worker Surgeon(s) Opal Quinn PA-C Estimated Blood Loss 3ml Findings See dictation Specimens none per surgeon Dr. Vivek Lord Drains None Anesthesia General Complication(s) None Disposition Recovery Room / PACU
--- NOTE | 2017-07-20 10:25 | Discharge Instructions ---
Discharge Instructions Date of Service Jul 20, 2017. Admission Reason for Admission: Umbilical Hernia Discharge Discharge Diagnosis / Problem: Same Discharge Goals Goal(s): Decrease discomfort Activity Recommendations Activity Limitations: per Instructions/Follow-up section Lifting Limitations: no more than 10 pounds (for 6 weeks) Shower/Bathe: tomorrow (tomorrow) . Instructions / Follow-Up Instructions / Follow-Up ACTIVITY RECOMMENDATIONS: * Walk as much as possible. * No heavy lifting (>10 lbs.) for 2 weeks. SPECIAL CARE INSTRUCTIONS: * Ice to hernia repair site on and off until bedtime tonight. * May shower in 24 hours. Let water run over area and pat dry. * Remove plastic dressing and cotton ball on Thursday * Leave steri strips on for one week. * Call the surgeon's office with any questions or concerns - (ex. temperature higher than 101 degrees F, excessive bleeding or pain). MEDICATIONS: Resume previous medications unless instructed otherwise by your surgeon. * Ibuprofen 600 mg every 6 hours with food * Percocet 1 every 4 hours, as needed for pain FOLLOW UP VISIT: If not already scheduled, please call the office to schedule a two week follow- up appointment. Office number Current Hospital Diet Patient's current hospital diet: Discharge Diet Recommended Diet: Regular Diet Procedures Procedures Performed: Open Umbilical Hernia Repair Pending Studies Studies pending at discharge: no Medical Emergencies . Who to Call and When: Medical Emergencies: If at any time you feel your situation is an emergency, please call 911 immediately. . Non-Emergent Contact Non-Emergency issues call your: Primary Care Provider, Surgeon Call Non-Emergent contact if: your pain is worsening, wound has increased redness, wound has increased pain . "Provider Documentation" section prepared by Vivek Lord. . VTE Core Measure Inpt VTE Proph given/why not?: Treatment not indicated
[2017-07-20] MEDS ORDERED: MoRPHine SULFATE 4 MG/ML 1 ML CARP\\VIAL IV PRN (10:30)
[2017-07-20] MEDS ORDERED: OXYCODONE/ACETAMINOPHEN 5-325 TAB PO PRN (10:30)
[2017-07-20 11:25] VITALS: BP 122/84; PULSE 45; TEMP 36.7; O2SAT 93
[2017-07-20 11:54] VITALS: BP 161/67; PULSE 46; O2SAT 98
--- NOTE | 2017-07-20 11:55 | Anesthesiology Progress Note ---
Anesthesia Post Op Note Date & Time Jul 20, 2017 at 11:54 Vital Signs Pain Intensity: 1 Vital Signs Past 12 Hours Date Time Temp Pulse Resp B/P (MAP) Pulse Ox O2 Delivery O2 Flow Rate FiO2 07/20/17 11:25 36.7 45 18 122/84 93 Nasal Cannula 2 07/20/17 11:06 36.6 47 18 140/79 93 Room Air 07/20/17 11:01 50 18 133/77 90 Room Air 07/20/17 10:50 57 18 140/87 94 Room Air 07/20/17 10:40 57 20 141/76 98 Mask 10 07/20/17 10:30 36.2 60 16 118/66 97 Mask 10 07/20/17 06:45 36.6 76 20 Notes Mental Status: alert / awake / arousable, participated in evaluation Pt Amnestic to Procedure: Yes Nausea / Vomiting: adequately controlled Pain: adequately controlled Airway Patency, RR, SpO2: stable & adequate BP & HR: stable & adequate Hydration State: stable & adequate Anesthetic Complications: no major complications apparent
[2017-07-20] MEDS ORDERED: OXYCODONE/ACETAMINOPHEN 5-325 TAB ONE (12:07)
[2017-07-20 12:25] VITALS: BP 145/80; PULSE 65; TEMP 36.7; O2SAT 55
--- NOTE | 2017-07-20 12:51 | OPERATIVE REPORT ---
DATE OF OPERATION: 07/20/2017 PREOPERATIVE DIAGNOSIS: Umbilical hernia. POSTOPERATIVE DIAGNOSIS: Same. PROCEDURE: Repair of umbilical hernia. SURGEON: Dr. Lord. PAPER TWISTER: Opal Quinn PA-C. FINDINGS: The patient had a hernia sac that was the size of a large walnut. The defect itself was about 1.2 cm. There were no other defects noted. There were no incarcerated contents. TECHNIQUE: The patient was given a general anesthetic and the area was prepped and draped in the usual sterile fashion. Transverse incision was made below the umbilicus, carried down through the subcutaneous tissue. The hernia sac was identified, with the subcutaneous tissue inferiorly to the left, then the right. Then it was peeled off the overlying dermis of the umbilical skin and superiorly way down to the edge of the fascial defect. The fascial defect was elevated and the peritoneum was dissected away from the fascial defect. The hernia sac was placed back into its anatomic position and a preperitoneal/retrofascial space was created for 4 cm around the entire circumference of the incision. Hemostasis was maintained. A piece of 10 cm Surgimesh was placed in the preperitoneal/retrofascial position. It was lying nicely. It was secured to the undersurface of the fascia in 4 quadrants using 0 PDS horizontal mattress suture. The fascial defect was then closed with a running #1 PDS. The dermal skin was approximated to the deeper tissues using interrupted 4-0 Monocryl and the skin was closed with 4-0 Monocryl in a running subcuticular fashion. The skin was anesthetized with 0.5% Marcaine. The skin was cleansed, dried, benzoin placed. Steri-Strips applied. A cotton ball was placed into the umbilicus and a plastic drape over. Estimated blood loss was 3 mL. Sponge, needle and instrument counts were correct prior to closure. The patient tolerated the surgical procedure without complication and was transferred to recovery. I attest to the content of the Intraoperative Record and any orders documented therein. Any exception s are noted below.
== END 2017-07-20 12:50 | disposition home or self-care (01) ==
LOC: C.ACU 05:58
PROVIDERS: ATTEND Surgery
DX: K42.9 Umbilical hernia without obstruction or gangrene (principal); I48.91 Unspecified atrial fibrillation; I48.92 Unspecified atrial flutter; Z79.01 Long term (current) use of anticoagulants; J44.9 Chronic obstructive pulmonary disease, unspecified; I27.2 Other secondary pulmonary hypertension; Z99.81 Dependence on supplemental oxygen; Z87.891 Personal history of nicotine dependence; Z79.899 Other long term (current) drug therapy